=== PATIENT | male | born 1980 | race Caucasian/White ===

== ENCOUNTER 2018-01-24 17:03 | Emergency (ER) | payer MEDICARE ==
[2018-01-24 17:17] VITALS: BMI 25.0
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
[2018-01-24 18:21] VITALS: RESP 18; O2SAT 98
[2018-01-24 18:26] VITALS: BP 129/79; PULSE 79; TEMP 98.2
--- NOTE | 2018-01-26 05:18 | CARD ---
APPROVED REPORT Date of service: 01/24/2018 EKG Measurement Heart [id number] <Conclusion> NSR normal ECG
== END 2018-01-24 18:25 | disposition home or self-care (01) ==
LOC: ED 17:03
DX: S09.90XA Unspecified injury of head, initial encounter (principal); Y04.0XXA Assault by unarmed brawl or fight, initial encounter; F17.210 Nicotine dependence, cigarettes, uncomplicated

== ENCOUNTER 2018-02-05 08:50 | Inpatient (IN) | payer MEDICARE, OTHER ==
[2018-02-05 08:51] VITALS: BMI 25.0
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
[2018-02-05 09:39] LABS: URINE BILIRUBIN NEGATIVE (NEGATIVE); URINE BLOOD SMALL (NEGATIVE); URINE GLUCOSE (UA) NEGATIVE (NEGATIVE); URINE LEUKOCYTE ESTERASE NEGATIVE Leu/uL (NEGATIVE); URINE PROTEIN NEGATIVE mg/dL (<30 mg/dL); URINE UROBILINOGEN 0.2 E.U./dL (<1 E.U./dL)
[2018-02-05 09:40] LABS: BASO # 0.02 K/mm3 (0.0-2.0); BASO % 0.2 % (0.0-3.0); GRAN # 8.86 (1.4-6.5); GRAN % 72.5 % (50.0-68.0); HEMOGLOBIN 15.4 g/dL (14.0-18.0); LYMPH # 2.2 (1.2-3.4); LYMPH % 17.8 % (22.0-35.0); MEAN CELL VOLUME 90.5 fl (80.0-105.0); MEAN CORPUSCULAR HEMOGLOBIN 30.4 pg (25.0-35.0); MEAN CORPUSCULAR HGB CONC 33.6 g/dl (31.0-37.0); MEAN PLATELET VOLUME 8.5 fl (7.0-11.0); MONO # 1.2 (0.1-0.6); MONO % 9.5 % (1.0-6.0); RBC 5.06 10^6/uL (3.5-6.1); RED CELL DISTRIBUTION WIDTH 12.9 % (11.5-14.5); WHITE BLOOD COUNT 12.2 10^3/ul (4.5-11.0)
[2018-02-05 09:41] LABS: URINE COLOR YELLOW (YELLOW)
[2018-02-05 09:42] LABS: URINE APPEARANCE CLEAR (CLEAR)
[2018-02-05 09:44] LABS: URINE BACTERIA MOD (NEG); URINE WBC 0 - 2 /hpf (0-6)
[2018-02-05 09:48] LABS: ACETAMINOPHEN < 10.0 ug/ml (10.0-20.0); ALB/GLOB RATIO 1.5 (1.1-1.8); ALBUMIN 4.8 g/dL (3.0-4.8); ALT/SGPT 44 U/L (7-56); AST/SGOT 61 U/L (17-59); BLOOD UREA NITROGEN 13 mg/dL (7-21); CALCIUM 9.9 mg/dL (8.4-10.5); GFR NON-AFRICAN AMERICAN > 60; SALICYLATE < 1 mg/dL (2.0-20.0)
--- NOTE | 2018-02-05 10:35 | RAD ---
Date of service: 02/05/2018 HISTORY: psych COMPARISON: No prior. FINDINGS: LUNGS: No active pulmonary disease. PLEURA: No significant pleural effusion identified, no pneumothorax apparent. CARDIOVASCULAR: Normal. OSSEOUS STRUCTURES: No significant abnormalities. VISUALIZED UPPER ABDOMEN: Normal. OTHER FINDINGS: None. IMPRESSION: No active disease.
--- NOTE | 2018-02-05 12:17 | CARD ---
APPROVED REPORT Date of service: 02/05/2018 EKG Measurement Heart [id number] <Conclusion> Sinus tachycardia Otherwise normal ECG
[2018-02-05 17:41] VITALS: O2SAT 99
[2018-02-05] MEDS ORDERED: fluPHENAZine Decanoate 25 mg/mL Inj(5ml) IM PRN (21:47)
[2018-02-05] MEDS ORDERED: Alum-Mag Hydrox-Simethicone Susp (30 mL) PO PRN (21:56)
[2018-02-05] MEDS ORDERED: Magnesium Hydroxide Susp 30 ml UD PO PRN (21:56)
[2018-02-05] MEDS: Divalproex 500 mg DR(BID formulation) PO SCH (22:16)
--- NOTE | 2018-02-06 00:37 | PCM.BM ---
Treatment Plan Problems - Problems identified on initial assessmt Altered Thought Process Date Initiated: 02/05/18 Time Initiated: 20:00 Assessment reference: NA Status: Active Priority: 1 Auditory Hallucinations Date Initiated: 02/05/18 Time Initiated: 20:00 Assessment reference: NA Status: Active Priority: 2 Medication Nonadherence Date Initiated: 02/05/18 Time Initiated: 20:00 Assessment reference: NA Status: Active Priority: 3 Ineffective Coping Date Initiated: 02/05/18 Time Initiated: 20:00 Assessment reference: NA Status: Active Priority: 4 Treatment assets and liabiliti Patient Assests: cooperative, physically healthy, good support system, negotiates basic needs Patient Liabilities: financial problems, imparied memory - Milieu Protocol Maintain good personal hygiene: daily Encourage regular showers, every shift Remind patient to perform daily oral care, every shift Assist patient to perform ADL's Maintain personal safety: every shift Educate patient to report safety concerns to staff, every shift Monitor environment for contraband/sharps Medication safety: Monitor for expected outcome, potential side effects: every shift, Assess barriers to learning: every shift, Assess readiness for medication education: every shift Family Contact Family involvement: Family/SO is involved Family contact: Patient agrees to contact - Goals for Treatment Patient goals for treatment: "Get better for my son. supervisor machining where I left off." Discharge/Continuing Care - Education Needs Education Needs: Family Medication, Family Diagnosis/Disease Process, Family Coping Skills, Family Placement options, Family Community resources, Patient Medication, Patient Diagnosis/Disease Process, Patient Coping Skills, Patient Anger Management skills, Patient Placement options, Patient Community resources , Patient Activities of Daily Living, Patient Pain, Patient Nutrition, Patient Uses of Medical Equipment, Patient Health Practices/Safety, Patient Personal Hygiene/Grooming, Patient Aftercare Safety Plan - Discharge Discharge Criteria: Tolerates medication w/o severe side effects
[2018-02-06 07:27] VITALS: RESP 20
[2018-02-06 08:02] LABS: GLUCOSE,FASTING 92 mg/dL (65-110); HDL CHOLESTEROL 38 mg/dL (29-60)
[2018-02-06 08:13] LABS: LDL CHOLESTEROL 79 mg/dL (0-129)
[2018-02-06] MEDS: Divalproex 500 mg DR(BID formulation) PO SCH ×2 (10:03→21:03)
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
[2018-02-06] MEDS: Lidocaine 5% Patch TD SCH (13:45)
[2018-02-07 07:00] VITALS: TEMP 97.8
[2018-02-07 07:42] LABS: HEMOGLOBIN 14.1 g/dL (14.0-18.0); MEAN CELL VOLUME 90.9 fl (80.0-105.0); MEAN CORPUSCULAR HEMOGLOBIN 29.9 pg (25.0-35.0); MEAN CORPUSCULAR HGB CONC 32.9 g/dl (31.0-37.0); MEAN PLATELET VOLUME 8.5 fl (7.0-11.0); RBC 4.72 10^6/uL (3.5-6.1); RED CELL DISTRIBUTION WIDTH 12.5 % (11.5-14.5); WHITE BLOOD COUNT 6.8 10^3/ul (4.5-11.0)
[2018-02-07 08:06] LABS: ALB/GLOB RATIO 1.4 (1.1-1.8); ALBUMIN 4.4 g/dL (3.0-4.8); ALT/SGPT 49 U/L (7-56); AST/SGOT 54 U/L (17-59); BLOOD UREA NITROGEN 13 mg/dL (7-21); CALCIUM 9.2 mg/dL (8.4-10.5); GFR NON-AFRICAN AMERICAN > 60
[2018-02-07] MEDS: Divalproex 500 mg DR(BID formulation) PO SCH ×2 (09:01→21:20)
[2018-02-07] MEDS: Lidocaine 5% Patch TD SCH (09:01)
--- NOTE | 2018-02-07 11:12 | RAD ---
Date of service: 02/07/2018 PROCEDURE: Radiographs of the Lumbar Spine. HISTORY: low back lumbar sacral regions COMPARISON: No prior. FINDINGS: BONES: Normal alignment. No listhesis. No fracture. There is a mild wedge deformity of L1. This is probably chronic DISC SPACES: Unremarkable. OTHER FINDINGS: None. IMPRESSION: No acute findings
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
--- NOTE | 2018-02-07 21:32 | PN ---
DATE: 02/07/2018 SUBJECTIVE: The patient is a 37-year-old white male who was initial admitted in the expansive/manic state. He had engaged in hyper productive speech, hyper motoric activity and racing thoughts. He was complaining of a lack of sleep. Presently, he is alert, oriented, pleasant, compliant. It indicates that he had been on Zyprexa years ago at the beginning of the onset of his cytopathologic state, but presently feels that it makes him feel ____ (although it did help him sleep last night; something that was difficult to him up until that). However, as the patient was also started on Geodon yesterday and seems to be under much better mood and thought controlled without overt signs of psychotic ideation i had gone along and discontinue the patient's Zyprexa. He does not appear to be hyperactive and is expressing some insight fall thoughts. Blood pressure 139/77, pulse elevated at 96, temperature 97.8, respiratory rate 20. A CBC and differential today is within normal limits. The patient is also on Depakote 500 mg a.m. and at bedtime. Supportive therapy offered. Ike Meza MD/ PhD
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
[2018-02-08] MEDS: Lidocaine 5% Patch TD SCH (08:01)
--- NOTE | 2018-02-08 09:11 | PCM.PYCHPN ---
Psychiatric Progress Note - Psychiatric Progress Note Patient seen today, length of contact: 30 minutes Problems Identified/Issues Discussed: PROGRESS NOTE I reviewed recent notes including Dr. Meza's reports dated 02/07/18. I met with patient in the hallway again. He is pleasant, elevated and very communicative. Remains oriented to month, year and location. Grooming is good and in general, patient denies any new issues. Reports that he feels good and has been improving since admission. Indicates that he slept 4-5 hours last night and feels this is enough sleep for him. Patient denies any issues with his medications. He confirms that geodon should be taken with meals and I informed this is necessary for the medication to be fully absorbed. Patient has been visible and social on the unit. Staff have unanimously commented on his elevated mood while he's been on the unit but it does appear that he is getting calmer and less..frenetic. Control seems a little better today though this could be wishful thinking. Staff have also noted that his thought process remains scattered and odd at times. He isn't overtly psychotic or paranoid during my interview but I can't discount that these symptoms continue to be an issue. I didn't observe him to be responding to internal stimuli and thus far, there have been no major behavioral issues. Diagnostic Results: Schizoaffective Disorder Medication Change: No ( ) Medical Record Reviewed: Yes Mental Status Examination - Cognitive Function Orientation: Person, Place Attention: Poor Concentration: Poor Association: Loose Fund of Knowledge: Poor - Mood Mood: Euphoric - Affect Affect: Broad - Speech Speech: Appropriate - Formal Thought Process Formal Thought Process: Loosening of associations - Suicidal Ideation Suicidal Ideation: No - Homicidal Ideation Homicidal Ideation: No Goal/Treatment Plan - Goal/Treatment Plan Progress Toward Problem(s) and Goals/Treatment Plan: * c/w current tx and plan * Increased depakote to 500 mg po AM and 1000 mg po HS to help with mood control as patient has been elevated with FOI on the unit. Requested VPA level to ensure patient isn't cheeking * Appreciate f/u by Dr. Morel on 02/08/18 ~Lumbar spine xray 02/07/18 showed no acute findings * No new weekend labs * Vitals reviewed and noted below: Selected Entries 02/09/18 07:14 Temperature 97.8 F Pulse Rate 85 Respiratory 20 Rate Blood Pressure 128/80
[2018-02-08] MEDS ORDERED: Divalproex 500 mg DR(BID formulation) PO SCH ×2 (10:00→22:00)
[2018-02-08] MEDS: Divalproex 500 mg ER (ONCE DAILY formulation) PO SCH ×2 (11:51→21:44)
--- NOTE | 2018-02-08 14:50 | PN ---
DATE: 02/08/2018 SUBJECTIVE: He is walking around the sparrow. I saw him in his room. He is doing well. No complaints. No chest pain or shortness of breath. No abdominal pain. He is doing better with his mentation. MEDICATIONS: He is on Ativan, Cogentin, Depakote, Desyrel, Geodon, Lidoderm, Maalox, milk of magnesia, NicoDerm, Sonata, Thorazine and Tylenol. PHYSICAL EXAMINATION: VITAL SIGNS: 97.8 temp, 84 pulse, 132/84 blood pressure, 20 respiratory rate. GENERAL: He is eating his foods well. He has taken the medications. HEENT: Head is atraumatic, normocephalic. HEART: Regular rate. LUNGS: Clear to auscultation. ABDOMEN: Soft. EXTREMITIES: No edema. LABORATORY DATA: Last labs on 02/07/2018, he had a 6.8 white count, came down nicely from 12; 14.1 hemoglobin; 42.9 hematocrit with 290 platelets. He has a 138 sodium, potassium 4.8, BUN 30, creatinine 1, GFR is greater than 60, sugar is 94, calcium is 9.2, total bili is 0.5, AST is 54, ALT is 49, alk phos 76, total protein 7.5. TSH is good at 0.58. Cholesterol is 135. ASSESSMENT AND PLAN: Overall, medically he is doing fairly fair. Mentally, he tells me slowly starting to improve. He had a lumbar spine x-ray, which showed no acute findings. We will continue with aggressive treatment and care on [facility]. We will follow. He has schizophrenia, urinary tract infection, low back pain. Fitz Morel DO
[2018-02-09] MEDS: Lidocaine 5% Patch TD SCH (08:02)
[2018-02-09] MEDS: Divalproex 500 mg ER (ONCE DAILY formulation) PO SCH ×2 (09:30→21:48)
--- NOTE | 2018-02-09 10:40 | PN ---
DATE: 02/09/2018 SUBJECTIVE: He is walking on the psychiatric floor. He is doing fairly well mentally. He says he is improving. He is on Ativan, Cogentin, Depakote, Desyrel, Geodon, Lidoderm, Maalox, milk of magnesia, NicoDerm, Sonata, Thorazine, Tylenol. He is also showing me a right wrist discoloration of the skin where maybe he had a watch one time, but it is all discolored and it is very itchy. It is possibly a fungal infection. I will give him a Lotrisone cream twice a day to help that. PHYSICAL EXAMINATION: VITAL SIGNS: He has a 97.8 temp, 85 pulse, 128/80 blood pressure, 20 respiratory rate. HEENT: Head is atraumatic, normocephalic. He also had a lip issue, but that improved since yesterday, so he does not want to show me his lip right now because he said it is all better. HEART: Regular rate. LUNGS: Clear to auscultation. ABDOMEN: Soft. EXTREMITIES: No edema, but the right wrist has discoloration, it could be a fungus infection. LABORATORY DATA: Last labs on 02/07/2018, the CBC was good. His chemistry was good. ASSESSMENT AND PLAN: We will add Lotrisone cream twice a day to his medication list. We will encourage him to continue to participate, take the medications from the psychiatrist. I do think he is mentally starting to improve. We will help his right wrist with some cream and we will follow. Fitz Morel DO
[2018-02-09] MEDS: Clotrimazole/Betamethasone Cream(15 gm) TOP SCH ×2 (12:42→16:58)
[2018-02-09 22:18] VITALS: BP 124/81; PULSE 94
[2018-02-10] MEDS: Lidocaine 5% Patch TD SCH (08:19)
--- NOTE | 2018-02-10 08:48 | PN ---
DATE: 02/10/2018 SUBJECTIVE: He is walking around the floor. He tells me he is doing better mentally overall. He is on Ativan, Cogentin, Depakote, Desyrel, Geodon, Lidoderm, Lotrisone cream, Maalox, milk of magnesia, NicoDerm, Sonata, Thorazine, Tylenol. He also shows me his right wrist where he had the discoloration and fungal infection and the Lotrisone is really helping him, he tells me. OBJECTIVE: VITAL SIGNS: He has 97.8 temperature, 85 pulse, 128/80 blood pressure, 20 respiratory rate. HEENT: Head is atraumatic, normocephalic. HEART: Regular rate. LUNGS: Clear to auscultation. ABDOMEN: Soft. EXTREMITIES: No edema. The right wrist infection is getting better as the fungus is improving with Lotrisone. DATA: Last labs on 02/07/2018 and he did well. He did have urinary tract infection. He had low back pain which is improving, urine is improving and the fungal infection is improving. As per Psychiatry, continue aggressive treatment and care. Fitz Morel DO
[2018-02-10] MEDS: Divalproex 500 mg ER (ONCE DAILY formulation) PO SCH (09:18)
[2018-02-10] MEDS: Clotrimazole/Betamethasone Cream(15 gm) TOP SCH (09:18)
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
== END 2018-02-10 15:54 | disposition home or self-care (01) | DRG 885 ==
LOC: ED 08:50 → ERH 16:59 → PSYC 18:40
PROVIDERS: ADMIT Psychiatry & Neurology Psychiatry; ATTEND Psychiatry & Neurology Addiction Medicine
PROC: GZ3ZZZZ Medication Management (ICD-10-PCS; principal; 2018-02-05)
DX: F25.9 Schizoaffective disorder, unspecified (principal); N39.0 Urinary tract infection, site not specified; M54.5 Low back pain; F17.210 Nicotine dependence, cigarettes, uncomplicated

== ENCOUNTER 2018-02-23 16:12 | Emergency (ER) | payer MEDICARE, OTHER ==
[2018-02-23 16:12] VITALS: BMI 25.0
[2018-02-23 16:19] VITALS: BP 116/74; PULSE 90; RESP 16; TEMP 99.4; O2SAT 96
--- NOTE | 2018-02-23 16:39 | ED PDOC ---
Arrival/HPI - General Chief Complaint: Back Pain Time Seen by Provider: 02/23/18 16:13 Historian: Patient - History of Present Illness Narrative History of Present Illness (Text): 02/23/18 16:36 37yo male with pmhx of schizophrenia who present with complaint of lower and upper back pain intermittent x 5years. He also reports white spots on his back, worried that it might be cancerous. He states back pain is similar to his prev ious pain. Notes that he does not take any medication for the pain. He denies any recent trauma, focal weakness, urinary/fecal incontinence, abdominal pain, urinary symptoms, fever, chills, neck pain, nuchal rigidity, any other complaint. Past Medical History - Provider Review Nursing Documentation Reviewed: Yes - Cardiac Hx Cardiac Disorders: No - Pulmonary Hx Respiratory Disorders: No - Neurological Hx Neurological Disorder: No - HEENT Hx HEENT Disorder: No - Renal Hx Renal Disorder: No - Endocrine/Metabolic Hx Endocrine Disorders: No - Hematological/Oncological Hx Blood Disorders: No - Integumentary Hx Dermatological Disorder: No - Musculoskeletal/Rheumatological Hx Musculoskeletal Disorders: No - Gastrointestinal Hx Gastrointestinal Disorders: No - Genitourinary/Gynecological Hx Genitourinary Disorders: No - Psychiatric Hx Psychophysiologic Disorder: Yes Hx Schizophrenia: Yes Hx Substance Use: Yes - Surgical History Hx Inguinal Hernia Repair: Yes - Anesthesia Hx Anesthesia: Yes - Suicidal Assessment Feels Threatened In Home Enviroment: Yes Family/Social History - Physician Review Nursing Documentation Reviewed: Yes Family/Social History: Unknown Family HX Smoking Status: Heavy Smoker > 10 Cigarettes Daily Hx Alcohol Use: No Hx Substance Use: Yes Hx Substance Use Treatment: No Allergies/Home Meds Allergies/Adverse Reactions: Allergies haloperidol [From Haldol] Adverse Reaction (Verified 02/23/18 16:13) PAIN cramping Home Medications: Home Meds Medication Instructions Recorded Confirmed Benztropine [Cogentin] 1 mg PO DAILY 02/23/18 02/23/18 Review of Systems - Physician Review All systems were reviewed & negative as marked: Yes - Review of Systems Constitutional: Normal Eyes: Normal ENT: Normal Respiratory: Normal Cardiovascular: Normal Gastrointestinal: Normal Genitourinary Male: Normal Musculoskeletal: Back Pain Skin: Other (White patches) Neurological: Normal Endocrine: Normal Hemo/Lymphatic: Normal Psychiatric: Normal Physical Exam Vital Signs Reviewed: Yes Vital Signs Temp Pulse Resp BP Pulse Ox 02/23/18 16:15 99.4 F 90 16 116/74 96 Temperature: Afebrile Blood Pressure: Normal Pulse: Regular Respiratory Rate: Normal Appearance: Positive for: Well-Appearing, Non-Toxic, Comfortable Pain Distress: None Mental Status: Positive for: Alert and Oriented X 3 - Systems Exam Head: Present: Atraumatic, Normocephalic Pupils: Present: PERRL Extroacular Muscles: Present: EOMI Conjunctiva: Present: Normal Mouth: Present: Moist Mucous Membranes Neck: Present: Normal Range of Motion Respiratory/Chest: Present: Clear to Auscultation, Good Air Exchange. No: Respiratory Distress, Accessory Muscle Use Cardiovascular: Present: Regular Rate and Rhythm, Normal S1, S2. No: Murmurs Abdomen: No: Tenderness, Distention, Peritoneal Signs Back: Present: Midline Tenderness (Midthoracic tenderness), Paraspinal Tenderness, Pain with Leg Raise (Right leg) Upper Extremity: Present: Normal Inspection. No: Cyanosis, Edema Lower Extremity: Present: Normal Inspection. No: Edema Neurological: Present: GCS=15, CN II-XII Intact, Speech Normal Skin: Present: Warm, Dry, Normal Color, Other (Vitiligo spots noted). No: Rashes Psychiatric: Present: Alert, Oriented x 3, Normal Insight, Normal Concentration Medical Decision Making ED Course and Treatment: 02/23/18 16:51 Pt presented for stated history. He was not in any distress. Ambulatory without help. His pain is chronic. He was treated with Toradol and flexeril in ED. His pain improved on re evaluation. He was DC home with ibuprofen and flexeril. Referred to his PMD/[employer] - Medication Orders Current Medication Orders: Discontinued Medications Cyclobenzaprine HCl (Flexeril) 10 mg PO STAT STA Stop: 02/23/18 16:33 Ketorolac Tromethamine (Toradol) 60 mg IM STAT STA Stop: 02/23/18 16:33 Disposition/Present on Arrival - Present on Arrival Any Indicators Present on Arrival: No History of DVT/PE: No History of Uncontrolled Diabetes: No Urinary Catheter: No History of Decub. Ulcer: No History Surgical Site Infection Following: None - Disposition Have Diagnosis and Disposition been Completed?: Yes Diagnosis: Vitiligo, Chronic back pain Disposition: HOME/ ROUTINE Disposition Time: 16:45 Patient Plan: Discharge Condition: STABLE Discharge Instructions (ExitCare): Vitiligo , Chronic Pain (DC) Additional Instructions: Follow up with your Doctor/[employer] Return to ED for any new or worsening symptoms Return to ED for any new or worsening symptoms Prescriptions: Cyclobenzaprine [Flexeril] 5 mg PO TID #12 tab RX: Ibuprofen [Motrin Tab] 600 mg PO Q6 #20 tab Referrals: Chang Alexander, [Primary Care Provider] - Follow up with primary Lola Topete MD [Medical Doctor] - Follow up with primary Ivanna Thrasher MD [Staff Provider] - Follow up with primary Forms: [employer] [facility] (Monegasque)
== END 2018-02-23 17:01 | disposition home or self-care (01) ==
LOC: ED 16:12
DX: L80 Vitiligo (principal); G89.29 Other chronic pain; M54.5 Low back pain; M54.6 Pain in thoracic spine
CPT/HCPCS: 96372; 99283; J1885

== ENCOUNTER 2018-02-27 21:46 | Emergency (ER) | payer MEDICARE, OTHER ==
[2018-02-27 21:59] VITALS: TEMP 98.2
[2018-02-27 22:00] VITALS: BMI 25.7
--- NOTE | 2018-02-27 23:10 | ED PDOC ---
Arrival/HPI - General Historian: Patient - History of Present Illness Narrative History of Present Illness (Text): 02/27/18 23:08 A37 year old male presents to the emergency department with a complaint of right rib injury. The patient states that yesterday he slipped and fell in the bath tub onto his right ribs. He states that the pain, swelling and bruising on his right ribs has been worsening with palpation and movement. The patient denies head injury, loss of consciousness, shortness of breath, dyspnea on exertion, abdominal pain, nausea, vomiting, diarrhea, back pain, neck pain, urinary/bowel changes, or any other complaints. Time/Duration: Other (Yesterday) Symptom Onset: Sudden Symptom Course: Unchanged Activities at Onset: Rest, Light Context: Standing, Slipped <Jimena Ridley PA-C - Last Filed: 02/28/18 01:18> <Guillermo Givens - Last Filed: 03/04/18 00:20> - General Chief Complaint: Back Pain Time Seen by Provider: 02/27/18 22:27 Past Medical History - Provider Review Nursing Documentation Reviewed: Yes - Cardiac Hx Cardiac Disorders: No - Pulmonary Hx Respiratory Disorders: No - Neurological Hx Neurological Disorder: No - HEENT Hx HEENT Disorder: No - Renal Hx Renal Disorder: No - Endocrine/Metabolic Hx Endocrine Disorders: No - Hematological/Oncological Hx Blood Disorders: No - Integumentary Hx Dermatological Disorder: No - Musculoskeletal/Rheumatological Hx Musculoskeletal Disorders: No - Gastrointestinal Hx Gastrointestinal Disorders: No - Genitourinary/Gynecological Hx Genitourinary Disorders: No - Psychiatric Hx Psychophysiologic Disorder: Yes Hx Schizophrenia: Yes Hx Substance Use: Yes - Surgical History Hx Inguinal Hernia Repair: Yes - Anesthesia Hx Anesthesia: Yes - Suicidal Assessment Feels Threatened In Home Enviroment: Yes <Jimena Ridley PA-C - Last Filed: 02/28/18 01:18> Family/Social History - Physician Review Nursing Documentation Reviewed: Yes Family/Social History: No Known Family HX Smoking Status: Heavy Smoker > 10 Cigarettes Daily Hx Alcohol Use: No Hx Substance Use: Yes Hx Substance Use Treatment: No <Jimena Ridley PA-C - Last Filed: 02/28/18 01:18> Allergies/Home Meds <Jimena Ridley PA-C - Last Filed: 02/28/18 01:18> <Guillermo Givens - Last Filed: 03/04/18 00:20> Allergies/Adverse Reactions: Allergies haloperidol [From Haldol] Adverse Reaction (Verified 02/27/18 21:59) PAIN cramping Home Medications: Home Meds Medication Instructions Recorded Confirmed Benztropine [Cogentin] 1 mg PO DAILY 02/23/18 02/27/18 Review of Systems - Physician Review All systems were reviewed & negative as marked: Yes - Review of Systems Respiratory: absent: SOB Gastrointestinal: absent: Abdominal Pain, Stool Changes, Diarrhea, Nausea, Vomiting Genitourinary Male: absent: Urinary Output Changes Musculoskeletal: absent: Back Pain, Neck Pain Neurological: absent: Headache, Dizziness <Jimena Ridley PA-C - Last Filed: 02/28/18 01:18> Physical Exam Vital Signs Reviewed: Yes Vital Signs Temp Pulse Resp BP Pulse Ox 02/27/18 21:58 98.2 F 94 H 18 131/80 97 Temperature: Afebrile Blood Pressure: Normal Pulse: Tachycardic Respiratory Rate: Normal Appearance: Positive for: Well-Appearing, Non-Toxic, Comfortable Pain Distress: None Mental Status: Positive for: Alert and Oriented X 3 - Systems Exam Head: Present: Atraumatic, Normocephalic Pupils: Present: PERRL Extroacular Muscles: Present: EOMI Conjunctiva: Present: Normal Mouth: Present: Moist Mucous Membranes Neck: Present: Normal Range of Motion Respiratory/Chest: Present: Clear to Auscultation, Good Air Exchange, Other (S welling and ecchymosis to the lateral lower ribs.). No: Respiratory Distress, Accessory Muscle Use Cardiovascular: Present: Regular Rate and Rhythm, Normal S1, S2. No: Murmurs Abdomen: No: Tenderness, Distention, Peritoneal Signs Back: Present: Normal Inspection Upper Extremity: Present: Normal Inspection. No: Cyanosis, Edema Lower Extremity: Present: Normal Inspection. No: Edema Neurological: Present: GCS=15, CN II-XII Intact, Speech Normal Skin: Present: Warm, Dry, Normal Color. No: Rashes Psychiatric: Present: Alert, Oriented x 3, Normal Insight, Normal Concentration <Jimena Ridley PA-C - Last Filed: 02/28/18 01:18> Vital Signs Temp Pulse Resp BP Pulse Ox 02/28/18 00:05 98.2 F 88 19 145/76 100 02/27/18 21:58 98.2 F 94 H 18 131/80 97 <Guillermo Givens - Last Filed: 03/04/18 00:20> Medical Decision Making ED Course and Treatment: 02/27/18 23:13 Impression: A 37 year old male presents to the emergency department with a complaint of right sided rib pain s/p slip and fall yesterday. Plan: -- Right Rib and PA Chest X-ray -- Reassess and disposition Progress Notes: XR right ribs: no fracture, no pneumothorax, as read by PA Patient advised that official radiology read of XR is still pending and will call the patient if there is any discrepancy within 24 hours. XR results d/w the patient. Dx of rib contusion d/w the patient. Advised to follow up with primary care physician or referral provided in 1-2 days without fail. Advised to take medication as prescribed. Return to the emergency room at any time for any new or worsening symptoms. Patient states he fully agrees with and understands discharge instructions. States that he agrees with the plan and disposition. Verbalized and repeated discharge instructions and plan. I have given the patient opportunity to ask any additional questions. - RAD Interpretation Radiology Orders: 02/27/18 22:28 RIBS RIGHT & PA CHEST [RAD] Stat <Jimena Ridley PA-C - Last Filed: 02/28/18 01:18> - RAD Interpretation Radiology Orders: 02/27/18 22:28 RIBS RIGHT & PA CHEST [RAD] Stat <Guillermo Givens - Last Filed: 03/04/18 00:20> - Scribe Statement The provider has reviewed the documentation as recorded by the Scribe Corine Dill Provider Scribe Attestation: All medical record entries made by the Scribe were at my direction and personally dictated by me. I have reviewed the chart and agree that the record accurately reflects my personal performance of the history, physical exam, medical decision making, and the department course for this patient. I have also personally directed, reviewed, and agree with the discharge instructions and disposition. <Jimena Ridley PA-C - Last Filed: 02/28/18 01:18> - PA / DIRECTOR OF PUBLIC SAFETY / Resident Statement / has reviewed & agrees with the documentation as recorded. <Guillermo Givens - Last Filed: 03/04/18 00:20> Disposition/Present on Arrival - Present on Arrival Any Indicators Present on Arrival: No History of DVT/PE: No History of Uncontrolled Diabetes: No Urinary Catheter: No History of Decub. Ulcer: No History Surgical Site Infection Following: None - Disposition Have Diagnosis and Disposition been Completed?: Yes Disposition Time: 23:45 Patient Plan: Discharge <Jimena Ridley PA-C - Last Filed: 02/28/18 01:18> <Guillermo Givens - Last Filed: 03/04/18 00:20> - Disposition Diagnosis: Contusion of rib on right side Disposition: HOME/ ROUTINE Condition: STABLE Discharge Instructions (ExitCare): Bruised Rib (DC) Additional Instructions: Thank you for letting us take care of you today. You were treated for right rib contusion. The emergency medical care you received today was directed at your acute symptoms. If you were prescribed any medication, please fill it and take as directed. It may take several days for your symptoms to resolve. Return to the Emergency Department if your symptoms worsen, do not improve, or if you have any other problems. Please contact your doctor in 2 days for re-evaluation and follow up / or call one of the physicians/clinics you have been referred to that are listed on the Patient Visit Information form that is included in your discharge packet. Bring any paperwork you were given at discharge with you along with any medications you are taking to your follow up visit. Our treatment cannot replace ongoing me dical care by a primary care provider (PCP) outside of the emergency department. Thank you for allowing the [facility] team to be part of your care today. If you had an X-Ray : A Radiologist will review the ED reading if any change in treatment is needed we will contact you. Prescriptions: RX: Naproxen 500 mg PO BID PRN #20 tablet PRN Reason: Pain, Moderate (4-7) Referrals: [facility] at [facility] [Outside] - Follow up with primary Lola Topete MD [Medical Doctor] - Follow up with primary Forms: [employer] (Uzbek), WORK NOTE
[2018-02-28 00:15] VITALS: BP 145/76; PULSE 88; RESP 19; O2SAT 100
--- NOTE | 2018-02-28 10:23 | RAD ---
Date of service: 02/27/2018 PROCEDURE: Radiographs of the Chest and Right Ribs. HISTORY: pain COMPARISON: None available. TECHNIQUE: Frontal radiograph of the chest and multiple oblique radiographs of the right ribs were obtained. FINDINGS: RIGHT RIBS: No fracture or focal lesion visualized. LUNGS: Clear. PLEURA: No pneumothorax or pleural fluid. CARDIOVASCULAR: Normal sized heart. No pulmonary vascular congestion. OTHER FINDINGS: None. IMPRESSION: Unremarkable radiographs of the chest and right ribs. No right rib fracture.
== END 2018-02-28 00:05 | disposition home or self-care (01) ==
LOC: ED 21:46
DX: S20.211A Contusion of right front wall of thorax, initial encounter (principal); W01.0XXA Fall on same level from slipping, tripping and stumbling without subsequent striking against object, initial encounter

== ENCOUNTER 2018-03-02 14:30 | Emergency (ER) | payer MEDICARE, OTHER ==
[2018-03-02 14:30] VITALS: BMI 25.7
[2018-03-02 15:30] VITALS: RESP 18; O2SAT 99
--- NOTE | 2018-03-02 16:10 | ED PDOC ---
Arrival/HPI - General Chief Complaint: Trauma Time Seen by Provider: 03/02/18 15:35 Historian: Patient - History of Present Illness Narrative History of Present Illness (Text): 03/02/18 16:07 37 year old male, whose past medical history includes bipolar disorder, who presents to the Emergency department complaining of left sided/posterior rib pain s/p trip and fall. Patient notes pain worsens with movement and respirations. Patient denies any fevers, chills, chest pain, shortness of breath, abdominal pain, nausea, vomiting, diarrhea, back pain, neck pain, headache, dizziness, or any other complaint. Time/Duration: Prior to Arrival Symptom Onset: Gradual Symptom Course: Unchanged Activities at Onset: Light Context: Home Past Medical History - Provider Review Nursing Documentation Reviewed: Yes - Infectious Disease Hx of Infectious Diseases: None - Cardiac Hx Cardiac Disorders: No - Pulmonary Hx Respiratory Disorders: No - Neurological Hx Neurological Disorder: No - HEENT Hx HEENT Disorder: No - Renal Hx Renal Disorder: No - Endocrine/Metabolic Hx Endocrine Disorders: No - Hematological/Oncological Hx Blood Disorders: No - Integumentary Hx Dermatological Disorder: No - Musculoskeletal/Rheumatological Hx Musculoskeletal Disorders: No - Gastrointestinal Hx Gastrointestinal Disorders: No - Genitourinary/Gynecological Hx Genitourinary Disorders: No - Psychiatric Hx Psychophysiologic Disorder: Yes Hx Schizophrenia: Yes Hx Substance Use: Yes - Surgical History Hx Inguinal Hernia Repair: Yes - Anesthesia Hx Anesthesia: Yes - Suicidal Assessment Feels Threatened In Home Enviroment: Yes Family/Social History - Physician Review Nursing Documentation Reviewed: Yes Family/Social History: Unknown Family HX Smoking Status: Heavy Smoker > 10 Cigarettes Daily Hx Alcohol Use: No Hx Substance Use: Yes Hx Substance Use Treatment: No Allergies/Home Meds Allergies/Adverse Reactions: Allergies haloperidol [From Haldol] Adverse Reaction (Verified 02/27/18 21:59) PAIN cramping Home Medications: Home Meds Medication Instructions Recorded Confirmed Benztropine [Cogentin] 1 mg PO DAILY 02/23/18 02/27/18 Review of Systems - Physician Review All systems were reviewed & negative as marked: Yes - Review of Systems Constitutional: Normal Eyes: Normal ENT: Normal Respiratory: Normal. absent: SOB, Cough Cardiovascular: Normal. absent: Chest Pain Gastrointestinal: Normal. absent: Abdominal Pain Genitourinary Male: Normal. absent: Dysuria, Frequency, Hematuria Musculoskeletal: Other (left sided/posterior rib pain). absent: Back Pain, Neck Pain Skin: Normal. absent: Rash Neurological: Normal. absent: Headache, Dizziness Endocrine: Normal Hemo/Lymphatic: Normal Psychiatric: Normal Physical Exam Vital Signs Reviewed: Yes Vital Signs Temp Pulse Resp BP Pulse Ox 03/02/18 15:00 98 F 88 18 131/73 99 Temperature: Afebrile Blood Pressure: Normal Pulse: Regular Respiratory Rate: Normal Appearance: Positive for: Well-Appearing, Non-Toxic, Comfortable Pain Distress: None Mental Status: Positive for: Alert and Oriented X 3 - Systems Exam Head: Present: Atraumatic, Normocephalic Pupils: Present: PERRL Extroacular Muscles: Present: EOMI Conjunctiva: Present: Normal Mouth: Present: Moist Mucous Membranes Neck: Present: Normal Range of Motion Respiratory/Chest: Present: Clear to Auscultation, Good Air Exchange, Other (left sided/posterior rib tenderness; no crepitus; no step off). No: Respiratory Distress, Accessory Muscle Use Cardiovascular: Present: Regular Rate and Rhythm, Normal S1, S2. No: Murmurs Abdomen: No: Tenderness, Distention, Peritoneal Signs Back: Present: Normal Inspection. No: CVA Tenderness, Midline Tenderness, Paraspinal Tenderness Upper Extremity: Present: Normal Inspection. No: Cyanosis, Edema Lower Extremity: Present: Normal Inspection. No: Edema Neurological: Present: GCS=15, CN II-XII Intact, Speech Normal Skin: Present: Warm, Dry, Normal Color. No: Rashes Psychiatric: Present: Alert, Oriented x 3, Normal Insight, Normal Concentration Medical Decision Making ED Course and Treatment: 03/02/18 16:11 Impression: 37 year old female presents to the emergency department complaining of left sided/posterior back pain. Differential Diagnosis included but are not limited to: r/o fracture r/o ptx Plan: -- Xray left ribs -- Reassess and disposition Progress Notes: 03/02/18 16:59 Rib Xray reviewed, shows negative results. Patient advised to f/u in the clinic. He was given an incentive spiratory and advised to use it at least three times daily and to return to the ED if symptoms worsen or any other concern. - RAD Interpretation Radiology Orders: 03/02/18 15:58 RIBS LEFT [RAD] Stat - Scribe Statement The provider has reviewed the documentation as recorded by the Zacharyibe Ashleigh Clemons All medical record entries made by the Scribe were at my direction and personally dictated by me. I have reviewed the chart and agree that the record accurately reflects my personal performance of the history, physical exam, medical decision making, and the department course for this patient. I have also personally directed, reviewed, and agree with the discharge instructions and disposition. Disposition/Present on Arrival - Present on Arrival Any Indicators Present on Arrival: No History of DVT/PE: No History of Uncontrolled Diabetes: No Urinary Catheter: No History of Decub. Ulcer: No History Surgical Site Infection Following: None - Disposition Have Diagnosis and Disposition been Completed?: Yes Diagnosis: Contusion of rib on left side Disposition: HOME/ ROUTINE Disposition Time: 16:59 Patient Plan: Discharge Condition: IMPROVED Discharge Instructions (ExitCare): Contusion (DC) Additional Instructions: LILLIAN CARROLL, thank you for letting us take care of you today. Your provider was Luis Enrique Dickinson DO and you were treated for RIB Contusion. The emergency medical care you received today was directed at your acute symptoms. If you were prescribed any medication, please fill it and take as directed. It may take several days for your symptoms to resolve. Return to the Emergency Department if your symptoms worsen, do not improve, or if you have any other problems. Please contact your doctor or call one of the physicians/clinics you have been referred to that are listed on the Patient Visit Information form that is included in your discharge packet. Bring any paperwork you were given at discharge with you along with any medications you are taking to your follow up visit. Our treatment cannot replace ongoing medical care by a primary care provider outside of the emergency department. Thank you for allowing the [facility] team to be part of your care today. If you had an X-Ray or CT scan: A Radiologist will review the ED reading if any change in treatment is needed we will contact you. If you had a blood, urine, or wound culture: It will take several days for the results, if any change in treatment is needed we will contact you. If you had an STI test: It will take 48 hours for the results. Please call after 1 week if you have not heard back. Prescriptions: Ibuprofen [Motrin] 600 mg PO Q6 PRN #30 tab PRN Reason: Pain, Moderate (4-7) Referrals: [facility] [Outside] - Follow up with primary Lola Topete MD [Medical Doctor] - Follow up with primary Forms: [employer] (Greek), WORK NOTE
[2018-03-02 17:03] VITALS: BP 118/71; PULSE 80; TEMP 97.6
--- NOTE | 2018-03-03 11:03 | RAD ---
Date of service: 03/02/2018 PROCEDURE: Left ribs HISTORY: left rib pain s/p fall r/o fx COMPARISON: TECHNIQUE: Five views FINDINGS: There is no evidence of displaced rib fracture or lytic lesion. There is no pneumothorax IMPRESSION: Negative study
== END 2018-03-02 17:00 | disposition home or self-care (01) ==
LOC: ED 14:30
DX: S20.212A Contusion of left front wall of thorax, initial encounter (principal); W01.0XXA Fall on same level from slipping, tripping and stumbling without subsequent striking against object, initial encounter; F17.210 Nicotine dependence, cigarettes, uncomplicated; F20.9 Schizophrenia, unspecified

== ENCOUNTER 2018-03-04 11:30 | Emergency (ER) | payer MEDICARE ==
[2018-03-04 11:34] VITALS: BMI 27.6
--- NOTE | 2018-03-04 11:59 | ED PDOC ---
Arrival/HPI - General Chief Complaint: Psychiatric Evaluation Time Seen by Provider: 03/04/18 11:31 Historian: Patient - History of Present Illness Narrative History of Present Illness (Text): 03/04/18 11:48 37 year old male, with past medical history of schizophrenia and bipolar disorder, who goes to [facility], presents to the Emergency Department via EMS accompanied by mother and [employer] for medical evaluation. Patient was reportedly at the facility today when he became agitated and started threatening the staff. [employer] was informed immediately, who subsequently brought the patient to the Emergency Department for medical evaluation. As per mother, patient has not been sleeping well recently and has been following people on the street. At bedside, patient appears agitated but denies any suicidal or homicidal ideation. Patient reports questionable compliance with medication. Patient denies any somatic complaints and states he just wants to listen to his music. Patient denies any chest pain, shortness of breath, headache, abdominal pain or any other complaints. Time/Duration: Prior to Arrival Symptom Onset: Gradual Symptom Course: Improving Activities at Onset: Light Context: Other ([facility]) Past Medical History - Provider Review Nursing Documentation Reviewed: Yes - Infectious Disease Hx of Infectious Diseases: None - Cardiac Hx Cardiac Disorders: No - Pulmonary Hx Respiratory Disorders: No - Neurological Hx Neurological Disorder: No - HEENT Hx HEENT Disorder: No - Renal Hx Renal Disorder: No - Endocrine/Metabolic Hx Endocrine Disorders: No - Hematological/Oncological Hx Blood Disorders: No - Integumentary Hx Dermatological Disorder: No - Musculoskeletal/Rheumatological Hx Musculoskeletal Disorders: Yes - Gastrointestinal Hx Gastrointestinal Disorders: No - Genitourinary/Gynecological Hx Genitourinary Disorders: No - Psychiatric Hx Psychophysiologic Disorder: Yes Hx Schizophrenia: Yes Hx Substance Use: Yes - Surgical History Hx Inguinal Hernia Repair: Yes - Anesthesia Hx Anesthesia: Yes - Suicidal Assessment Feels Threatened In Home Enviroment: Yes Family/Social History - Physician Review Nursing Documentation Reviewed: Yes Family/Social History: No Known Family HX Smoking Status: Heavy Smoker > 10 Cigarettes Daily Hx Alcohol Use: No Hx Substance Use: Yes Hx Substance Use Treatment: No Allergies/Home Meds Allergies/Adverse Reactions: Allergies haloperidol [From Haldol] Adverse Reaction (Verified 03/04/18 11:34) PAIN cramping Home Medications: Home Meds Medication Instructions Recorded Confirmed Benztropine [Cogentin] 1 mg PO DAILY 02/23/18 03/04/18 Review of Systems - Review of Systems Constitutional: absent: Fevers Respiratory: absent: SOB Cardiovascular: absent: Chest Pain Gastrointestinal: absent: Abdominal Pain, Diarrhea, Nausea, Vomiting Musculoskeletal: absent: Back Pain, Neck Pain Neurological: absent: Headache, Dizziness Psychiatric: Other (Agitation). absent: Suicidal Ideation Physical Exam Vital Signs Reviewed: Yes Vital Signs Temp Pulse Resp BP Pulse Ox 03/04/18 11:35 99.1 F 99 H 16 118/78 96 Temperature: Afebrile Blood Pressure: Normal Pulse: Regular Respiratory Rate: Normal Appearance: Positive for: Other (Agitated) Pain Distress: None Mental Status: Positive for: Alert and Oriented X 3 - Systems Exam Head: Present: Atraumatic, Normocephalic Pupils: Present: PERRL Extroacular Muscles: Present: EOMI Conjunctiva: Present: Normal Mouth: Present: Moist Mucous Membranes Neck: Present: Normal Range of Motion Respiratory/Chest: Present: Clear to Auscultation, Good Air Exchange. No: Respiratory Distress, Accessory Muscle Use Cardiovascular: Present: Regular Rate and Rhythm, Normal S1, S2. No: Murmurs Abdomen: No: Tenderness, Distention, Peritoneal Signs Back: Present: Normal Inspection Upper Extremity: Present: Normal Inspection. No: Cyanosis, Edema Lower Extremity: Present: Normal Inspection. No: Edema Neurological: Present: GCS=15, CN II-XII Intact, Speech Normal Skin: Present: Warm, Dry, Normal Color. No: Rashes Psychiatric: Present: Alert, Oriented x 3, Agitated Medical Decision Making ED Course and Treatment: 03/04/18 11:34 Impression: 37 year old male presents to the Emergency Department for medical evaluation. Plan: -- Labs -- EKG -- Chest X-ray -- Urinalysis -- Reassess and disposition Prior Visits: Notes and results from previous visits were reviewed. Progress Notes: 03/04/18 12:25 EKG shows NSR at 96bpm with normal intervals and no ST changes 03/04/18 15:07 Cxray negative. Labs reviewed. CK mildly elevated but creatinine WNL. Hematuria on ua and patient made aware of need for outpatient follow-up. Given copious water in ED. Patient evaluated by crisis and pending [facility] screen 03/04/18 20:[address] Gonsalez pending [facility] eval - RAD Interpretation Narrative RAD Interpretations (Text): 03/04/18 13:18 Chest X-ray reviewed by radiologist, shows: FINDINGS: LUNGS: The lungs are well inflated and clear. PLEURA: No significant pleural effusion identified, no pneumothorax apparent. CARDIOVASCULAR: Normal. OSSEOUS STRUCTURES: No significant abnormalities. VISUALIZED UPPER ABDOMEN: Normal. OTHER FINDINGS: None. IMPRESSION: No active pulmonary disease. Radiology Orders: 03/04/18 11:35 CHEST PORTABLE [RAD] Stat Vacuum Cooker Operator: Radiologist - Scribe Statement The provider has reviewed the documentation as recorded by the Scribe Nai Deleon. All medical record entries made by the Scribe were at my direction and personally dictated by me. I have reviewed the chart and agree that the record accurately reflects my personal performance of the history, physical exam, medical decision making, and the department course for this patient. I have also personally directed, reviewed, and agree with the discharge instructions and disposition. Disposition/Present on Arrival - Present on Arrival Any Indicators Present on Arrival: No History of DVT/PE: No History of Uncontrolled Diabetes: No Urinary Catheter: No History of Decub. Ulcer: No History Surgical Site Infection Following: None - Disposition Have Diagnosis and Disposition been Completed?: Yes Diagnosis: Hematuria, Schizophrenia Disposition Time: 20:52 Patient Problems: Current Active Problems Problem Status Onset Hematuria Acute Schizophrenia Acute Condition: UNKNOWN Forms: [employer] ([place] Islander)
[2018-03-04 12:16] LABS: BASO # 0.02 K/mm3 (0.0-2.0); BASO % 0.2 % (0.0-3.0); EOS % 0.1 % (1.5-5.0); GRAN # 7.28 (1.4-6.5); GRAN % 73.5 % (50.0-68.0); HEMOGLOBIN 14.5 g/dL (14.0-18.0); LYMPH # 1.6 (1.2-3.4); LYMPH % 15.8 % (22.0-35.0); MEAN CELL VOLUME 90.5 fl (80.0-105.0); MEAN CORPUSCULAR HEMOGLOBIN 30.7 pg (25.0-35.0); MEAN PLATELET VOLUME 9.2 fl (7.0-11.0); MONO % 10.4 % (1.0-6.0); RBC 4.72 10^6/uL (3.5-6.1); RED CELL DISTRIBUTION WIDTH 12.7 % (11.5-14.5); WHITE BLOOD COUNT 9.9 10^3/ul (4.5-11.0)
[2018-03-04 12:30] LABS: ACETAMINOPHEN < 10.0 ug/ml (10.0-20.0); SALICYLATE < 1 mg/dL (2.0-20.0)
[2018-03-04 12:35] LABS: ALB/GLOB RATIO 1.4 (1.1-1.8); ALBUMIN 4.4 g/dL (3.0-4.8); ALT/SGPT 33 U/L (7-56); AST/SGOT 27 U/L (17-59); BLOOD UREA NITROGEN 10 mg/dL (7-21); CALCIUM 9.2 mg/dL (8.4-10.5); GFR NON-AFRICAN AMERICAN > 60
[2018-03-04 12:49] LABS: CK-MB 3.6 ng/mL (0.0-3.6)
--- NOTE | 2018-03-04 13:08 | RAD ---
Date of service: 03/04/2018 HISTORY: psych COMPARISON: 02/27/2018. FINDINGS: LUNGS: The lungs are well inflated and clear. PLEURA: No significant pleural effusion identified, no pneumothorax apparent. CARDIOVASCULAR: Normal. OSSEOUS STRUCTURES: No significant abnormalities. VISUALIZED UPPER ABDOMEN: Normal. OTHER FINDINGS: None. IMPRESSION: No active pulmonary disease.
[2018-03-04 13:56] LABS: URINE BILIRUBIN NEGATIVE (NEGATIVE); URINE BLOOD SMALL (NEGATIVE); URINE GLUCOSE (UA) NEGATIVE (NEGATIVE); URINE LEUKOCYTE ESTERASE NEGATIVE Leu/uL (NEGATIVE); URINE PROTEIN TRACE mg/dL (<30 mg/dL)
[2018-03-04 13:59] LABS: URINE APPEARANCE SL CLOUDY (CLEAR); URINE COLOR YELLOW (YELLOW)
[2018-03-04 14:01] VITALS: RESP 18
[2018-03-04 14:02] LABS: URINE WBC NEGATIVE /hpf (0-6)
[2018-03-04 14:23] LABS: BARBITURATES, UR NEGATIVE (NEGATIVE); BENZODIAZEPINES, UR NEGATIVE (NEGATIVE); OPIATES, UR NEGATIVE (NEGATIVE); PHENCYCLIDINE, UR NEGATIVE (NEGATIVE)
--- NOTE | 2018-03-05 06:36 | CARD ---
APPROVED REPORT Date of service: 03/04/2018 EKG Measurement Heart [id number] <Conclusion> Normal sinus rhythm Normal ECG
--- NOTE | 2018-03-05 07:16 | ED PDOC ---
Physical Exam Vital Signs Temp Pulse Resp BP Pulse Ox 03/05/18 06:53 75 18 115/72 100 03/05/18 02:59 73 18 110/87 100 03/04/18 20:00 80 18 118/82 100 03/04/18 14:00 79 18 126/79 97 03/04/18 11:35 99.1 F 99 H 16 118/78 96 Medical Decision Making ED Course and Treatment: 03/05/18 07:00 Case endorsed to me by Dr. Gonsalez pending transfer to [facility]. 03/05/18 19:[address] Gonaslez pending transfer to [facility] - Lab Interpretations Lab Results: 03/04/18 11:45 03/04/18 11:45 Lab Results 03/04/18 13:50: Urine Opiates Screen Negative, Urine Methadone Screen Negative, Ur Barbiturates Screen Negative, Ur Phencyclidine Scrn Negative, Ur Amphetamines Screen Negative, U Benzodiazepines Scrn Negative, U Oth Cocaine Metabols Negative, U Cannabinoids Screen Negative 03/04/18 13:50: Urine Color Yellow, Urine Appearance Sl cloudy, Urine pH 7.0, Ur Specific [place] 1.020, Urine Protein Trace H, Urine Glucose (UA) Negative, Urine Ketones Trace H, Urine Blood Small H, Urine Nitrate Negative, Urine Bilirubin Negative, Urine Urobilinogen 1.0 H, Ur Leukocyte Esterase Negative, Urine RBC 1 - 3, Urine WBC Negative 03/04/18 11:45: Alcohol, Quantitative < 10 03/04/18 11:45: Salicylates < 1 L, Acetaminophen < 10.0 L 03/04/18 11:45: Sodium 140, Potassium 3.7, Chloride 106, Carbon Dioxide 26, Anion Gap 12, BUN 10, Creatinine 0.9, Est GFR ( Amer) > 60, Est GFR (Non- Af Amer) > 60, Random Glucose 100, Calcium 9.2, Magnesium 2.2, Total Bilirubin 0.6, AST 27, ALT 33, Alkaline Phosphatase 82, Total Creatine Kinase 605 H, CK-MB (CK-2) 3.6, CK-MB (CK-2) % Cancelled, Total Protein 7.5, Albumin 4.4, Globulin 3.1, Albumin/Globulin Ratio 1.4 03/04/18 11:45: WBC 9.9 D, RBC 4.72, Hgb 14.5, Hct 42.7, MCV 90.5, MCH 30.7, MCHC 34.0, RDW 12.7, Plt Count 233, MPV 9.2, Gran % 73.5 H, Lymph % (Auto) 15.8 L, [place] % (Auto) 10.4 H, Eos % (Auto) 0.1 L, Baso % (Auto) 0.2, Gran # 7.28 H, Lymph # (Auto) 1.6, [place] # (Auto) 1.0 H, Eos # (Auto) 0.0, Baso # (Auto) 0.02 - RAD Interpretation Radiology Orders: 03/04/18 11:35 CHEST PORTABLE [RAD] Stat - Medication Orders Current Medication Orders: Discontinued Medications Lorazepam (Ativan) 1 mg PO ONCE ONE; Protocol Stop: 03/05/18 00:31 Last Admin: 03/05/18 00:30 Dose: 1 mg - Scribe Statement The provider has reviewed the documentation as recorded by the Rohan Manning Provider Scribe Attestation: All medical record entries made by the Rohan were at my direction and personally dictated by me. I have reviewed the chart and agree that the record accurately reflects my personal performance of the history, physical exam, medical decision making, and the department course for this patient. I have also personally directed, reviewed, and agree with the discharge instructions and disposition. Disposition/Present on Arrival - Present on Arrival Any Indicators Present on Arrival: No History of DVT/PE: No History of Uncontrolled Diabetes: No Urinary Catheter: No History of Decub. Ulcer: No History Surgical Site Infection Following: None - Disposition Have Diagnosis and Disposition been Completed?: Yes Diagnosis: Hematuria, Schizophrenia Disposition: Transfer [facility] Disposition Time: 19:00 Condition: GOOD Forms: [employer] (Armenian)
[2018-03-05 18:29] VITALS: TEMP 98.7
--- NOTE | 2018-03-05 19:16 | ED PDOC ---
Physical Exam Vital Signs Temp Pulse Resp BP Pulse Ox 03/05/18 18:28 98.7 F 88 18 120/90 97 03/05/18 14:58 84 18 112/64 100 03/05/18 10:30 80 18 120/77 99 03/05/18 07:45 97.8 F 72 18 118/65 100 03/05/18 06:53 75 18 115/72 100 03/05/18 02:59 73 18 110/87 100 03/04/18 20:00 80 18 118/82 100 03/04/18 14:00 79 18 126/79 97 03/04/18 11:35 99.1 F 99 H 16 118/78 96 Medical Decision Making ED Course and Treatment: 03/05/18 19:15 Patient endorsed to me by . Pending transfer for [facility]. 03/05/18 21:06 Pt transferred to [facility] via BLS. - Lab Interpretations Lab Results: 03/04/18 11:45 03/04/18 11:45 Lab Results 03/04/18 13:50: Urine Opiates Screen Negative, Urine Methadone Screen Negative, Ur Barbiturates Screen Negative, Ur Phencyclidine Scrn Negative, Ur Amphetamines Screen Negative, U Benzodiazepines Scrn Negative, U Oth Cocaine Metabols Negative, U Cannabinoids Screen Negative 03/04/18 13:50: Urine Color Yellow, Urine Appearance Sl cloudy, Urine pH 7.0, Ur Specific [place] 1.020, Urine Protein Trace H, Urine Glucose (UA) Negative, Urine Ketones Trace H, Urine Blood Small H, Urine Nitrate Negative, Urine Bilirubin Negative, Urine Urobilinogen 1.0 H, Ur Leukocyte Esterase Negative, Urine RBC 1 - 3, Urine WBC Negative 03/04/18 11:45: Alcohol, Quantitative < 10 03/04/18 11:45: Salicylates < 1 L, Acetaminophen < 10.0 L 03/04/18 11:45: Sodium 140, Potassium 3.7, Chloride 106, Carbon Dioxide 26, Anion Gap 12, BUN 10, Creatinine 0.9, Est GFR ( Amer) > 60, Est GFR (Non- Af Amer) > 60, Random Glucose 100, Calcium 9.2, Magnesium 2.2, Total Bilirubin 0.6, AST 27, ALT 33, Alkaline Phosphatase 82, Total Creatine Kinase 605 H, CK-MB (CK-2) 3.6, CK-MB (CK-2) % Cancelled, Total Protein 7.5, Albumin 4.4, Globulin 3.1, Albumin/Globulin Ratio 1.4 03/04/18 11:45: WBC 9.9 D, RBC 4.72, Hgb 14.5, Hct 42.7, MCV 90.5, MCH 30.7, MCHC 34.0, RDW 12.7, Plt Count 233, MPV 9.2, Gran % 73.5 H, Lymph % (Auto) 15.8 L, [place] % (Auto) 10.4 H, Eos % (Auto) 0.1 L, Baso % (Auto) 0.2, Gran # 7.28 H, Lymph # (Auto) 1.6, [place] # (Auto) 1.0 H, Eos # (Auto) 0.0, Baso # (Auto) 0.02 - RAD Interpretation Radiology Orders: 03/04/18 11:35 CHEST PORTABLE [RAD] Stat - Medication Orders Current Medication Orders: Divalproex Sodium (Depakote Dr(*Bid*)) 500 mg PO [facility] ALEJANDRA Olanzapine (Zyprexa Zydis) 5 mg PO AM[facility] ALEJANDRA; Protocol Trazodone HCl (Desyrel) 50 mg PO HS ALEJANDRA Discontinued Medications Diphenhydramine HCl (Benadryl) 50 mg PO STAT STA Stop: 03/05/18 07:44 Last Admin: 03/05/18 07:57 Dose: 50 mg Lorazepam (Ativan) 1 mg PO ONCE ONE; Protocol Stop: 03/05/18 00:31 Last Admin: 03/05/18 00:30 Dose: 1 mg Lorazepam (Ativan) 1 mg PO STAT STA Stop: 03/05/18 07:54 Last Admin: 03/05/18 08:02 Dose: 1 mg - Scribe Statement The provider has reviewed the documentation as recorded by the Zacharyibpriscila Lazaro Provider Scribe Attestation: All medical record entries made by the Scribe were at my direction and personally dictated by me. I have reviewed the chart and agree that the record accurately reflects my personal performance of the history, physical exam, medical decision making, and the department course for this patient. I have also personally directed, reviewed, and agree with the discharge instructions and disposition. Disposition/Present on Arrival - Present on Arrival Any Indicators Present on Arrival: No History of DVT/PE: No History of Uncontrolled Diabetes: No Urinary Catheter: No History of Decub. Ulcer: No History Surgical Site Infection Following: None - Disposition Have Diagnosis and Disposition been Completed?: Yes Diagnosis: Hematuria, Schizophrenia Disposition: Transfer [facility] Disposition Time: 21:00 Condition: UNKNOWN Forms: [employer] (Chinese)
[2018-03-05 21:09] VITALS: BP 120/80; PULSE 86; O2SAT 100
--- NOTE | 2018-03-05 21:20 | CON ---
DATE: 03/05/2018 HISTORY OF PRESENT ILLNESS: In short, the patient is 37-year-old male with reported history of schizoaffective disorder, bipolar type. The patient was noncompliant with the medication, was brought in by police because the patient was agitated. The patient was following people on the streets, was completely disorganized, was not able to sleep. In the emergency room, the patient became very agitated, was threatening staff. Psychiatrist on-call recommended screening. The patient was evaluated by [facility], was accepted. At present moment, the patient is waiting for bed to be available. This commercial insurance underwriter reviewed previous history. The patient has history of schizophrenia, had admissions to this facility in psychiatric inpatient unit under Dr. Meza service on 01/2018. The patient was on the following medications, Zyprexa, Depakote as well as trazodone. We will resume that medication. This commercial insurance underwriter attempted to speak to the patient. The patient presented to be disorganized, was posturing, also religiously preoccupied. Overall was calm. This commercial insurance underwriter educated the patient about plan. The patient is aware that he will be transferred to [facility]. Vital signs: Reviewed, seems to be stable. Medications reviewed. This commercial insurance underwriter started Depakote 500 mg twice a day, Zyprexa Zydis as well as trazodone. Labs reviewed. Toxicology was negative for any substances. Microbiology reviewed. MENTAL STATUS EXAMINATION: The patient presented to be odd and disorganized. Overall pleasant, superficially cooperative. Intense eye contact. Speech was minimal, yes-no answers. Thought process disorganized. Thought content, the patient obviously presented to be disorganized, psychotic and responding to internal stimuli. Insight and judgment seems to be impaired. Impulses are unpredictable. IMPRESSION: Acute exacerbation of chronic schizophrenia. The patient also has questionable schizoaffective disorder, bipolar type. PLAN: The patient is waiting for bed to be available at [facility]. The patient is currently on one-to-one for elopement risk. The patient was resumed on Zyprexa, Depakote as well as trazodone. We will follow up on this patient on daily basis until the patient will be transferred to [facility]. Meanwhile, the patient needs to stay in the hospital for further evaluation and stabilization. Thank you very much for letting me participate in the care of your patient. Emi Serrano MD
[2018-03-05] MEDS ORDERED: OLANZapine 5 mg Disintegrating Tab PO SCH (22:00)
[2018-03-05] MEDS ORDERED: Divalproex 500 mg DR(BID formulation) PO SCH (22:00)
--- NOTE | 2018-03-06 13:33 | CP.PCM.PCO ---
Physician Communication Note - Physician Communication Note Physician Communication Note: pt was transfered to [facility]
== END 2018-03-05 21:06 | disposition short-term general hospital (02) ==
LOC: ED 11:30
DX: F20.9 Schizophrenia, unspecified (principal); R31.9 Hematuria, unspecified; F17.210 Nicotine dependence, cigarettes, uncomplicated
CPT/HCPCS: 71045; 80053; 81001; 82550; 82553; 83735; 85025; 90791; 93005; 99285; G0480

== ENCOUNTER 2018-03-23 14:22 | Inpatient (IN) | payer MEDICARE, OTHER ==
[2018-03-23 14:22] VITALS: BMI 27.6
--- NOTE | 2018-03-23 14:36 | ED PDOC ---
Arrival/HPI - General Chief Complaint: Psychiatric Evaluation Time Seen by Provider: 03/23/18 14:30 Historian: Patient - History of Present Illness Narrative History of Present Illness (Text): 03/23/18 14:33 37 y/o male, no significant pmh, allergic to haldol?, biba with the police for psychiatric evaluation x 1 day. Pt. stated that he has some problem at home psychiatrically, people don't belief who he is and dont belief he can help other people. Pt. has no chest pain or shortness of breath, no night sweat, no numbness or tingling, no palpitation, no other medical or psychological complaints. Past Medical History - Provider Review Nursing Documentation Reviewed: Yes - Infectious Disease Hx of Infectious Diseases: None - Cardiac Hx Cardiac Disorders: No - Pulmonary Hx Respiratory Disorders: No - Neurological Hx Neurological Disorder: No - HEENT Hx HEENT Disorder: No - Renal Hx Renal Disorder: No - Endocrine/Metabolic Hx Endocrine Disorders: No - Hematological/Oncological Hx Blood Disorders: No - Integumentary Hx Dermatological Disorder: No - Musculoskeletal/Rheumatological Hx Musculoskeletal Disorders: Yes - Gastrointestinal Hx Gastrointestinal Disorders: No - Genitourinary/Gynecological Hx Genitourinary Disorders: No - Psychiatric Hx Psychophysiologic Disorder: Yes Hx Schizophrenia: Yes Hx Substance Use: Yes - Surgical History Hx Inguinal Hernia Repair: Yes - Anesthesia Hx Anesthesia: Yes - Suicidal Assessment Feels Threatened In Home Enviroment: Yes Family/Social History - Physician Review Nursing Documentation Reviewed: Yes Family/Social History: Unknown Family HX Smoking Status: Heavy Smoker > 10 Cigarettes Daily Hx Alcohol Use: No Hx Substance Use: Yes Hx Substance Use Treatment: No Allergies/Home Meds Allergies/Adverse Reactions: Allergies haloperidol [From Haldol] Adverse Reaction (Verified 03/23/18 14:30) PAIN cramping Home Medications: Home Meds Medication Instructions Recorded Confirmed Benztropine [Cogentin] 1 mg PO DAILY 02/23/18 03/23/18 Review of Systems - Review of Systems Constitutional: absent: Fatigue, Fevers Eyes: absent: Vision Changes ENT: absent: Hearing Changes Respiratory: absent: SOB, Cough Cardiovascular: absent: Chest Pain Gastrointestinal: absent: Abdominal Pain, Diarrhea, Nausea, Vomiting Skin: absent: Rash, Pruritis Neurological: absent: Headache, Dizziness Psychiatric: absent: Anxiety, Depression, Suicidal Ideation Physical Exam - Systems Exam Head: Present: Atraumatic, Normocephalic Pupils: Present: PERRL Extroacular Muscles: Present: EOMI Conjunctiva: Present: Normal Mouth: Present: Moist Mucous Membranes Neck: Present: Normal Range of Motion Respiratory/Chest: Present: Clear to Auscultation, Good Air Exchange. No: Respiratory Distress, Accessory Muscle Use Cardiovascular: Present: Regular Rate and Rhythm, Normal S1, S2. No: Murmurs Abdomen: No: Tenderness, Distention, Peritoneal Signs Back: Present: Normal Inspection Upper Extremity: Present: Normal Inspection. No: Cyanosis, Edema Lower Extremity: Present: Normal Inspection. No: Edema Neurological: Present: GCS=15, CN II-XII Intact, Speech Normal, Motor Func Grossly Intact, Gait Normal, Memory Normal Skin: Present: Warm, Dry, Normal Color. No: Rashes Psychiatric: Present: Alert, Oriented x 3, Normal Insight, Normal Concentration Medical Decision Making ED Course and Treatment: 03/23/18 14:35 -Labs -ekg -cxr -PES paged -Observe and reassess 03/23/18 15:41 -EKG: SR @ 69 BPM, no ST elevation or depression, no T wave inversion. Pt pur porsely shake during the ekg but resolved upong removal of lead. -CXR Er wet read show no active disease -Labs show no acute findings -Acetaminophen/salicylate/alcohol within normal limit -UA show no UTI -UDS show no acute findings -Pt. is medically clear and stable for psychiatric evaluation. 03/23/18 16:27 -PES Ronald evaluated the patient, spoke to the psychiatrist dread, recommend admission to DR. Emi Avilez. - RAD Interpretation Radiology Orders: 03/23/18 14:32 CHEST PORTABLE [RAD] Stat - PA / SHOP WORKER / Resident Statement MD/DO has reviewed & agrees with the documentation as recorded. Disposition/Present on Arrival - Present on Arrival Any Indicators Present on Arrival: No History of DVT/PE: No History of Uncontrolled Diabetes: No Urinary Catheter: No History of Decub. Ulcer: No History Surgical Site Infection Following: None - Disposition Have Diagnosis and Disposition been Completed?: Yes Diagnosis: Schizophrenia Disposition: HOSPITALIZED Disposition Time: 16:28 Patient Plan: Admission Condition: STABLE Forms: [employer] (Kinyarwanda)
[2018-03-23 15:06] LABS: BASO # 0.03 K/mm3 (0.0-2.0); BASO % 0.3 % (0.0-3.0); EOS % 0.1 % (1.5-5.0); GRAN # 6.5 (1.4-6.5); GRAN % 64.5 % (50.0-68.0); HEMOGLOBIN 16.1 g/dL (14.0-18.0); LYMPH # 2.8 (1.2-3.4); LYMPH % 28.1 % (22.0-35.0); MEAN CELL VOLUME 90.6 fl (80.0-105.0); MEAN CORPUSCULAR HEMOGLOBIN 30.7 pg (25.0-35.0); MEAN CORPUSCULAR HGB CONC 33.9 g/dl (31.0-37.0); MEAN PLATELET VOLUME 8.9 fl (7.0-11.0); MONO # 0.7 (0.1-0.6); RBC 5.24 10^6/uL (3.5-6.1); RED CELL DISTRIBUTION WIDTH 12.5 % (11.5-14.5); WHITE BLOOD COUNT 10.1 10^3/uL (4.5-11.0)
[2018-03-23 15:18] LABS: ACETAMINOPHEN < 10.0 ug/ml (10.0-20.0); SALICYLATE < 1 mg/dL (2.0-20.0)
[2018-03-23 15:23] LABS: ALB/GLOB RATIO 1.4 (1.1-1.8); ALBUMIN 4.8 g/dL (3.0-4.8); ALT/SGPT 31 U/L (7-56); AST/SGOT 26 U/L (17-59); BLOOD UREA NITROGEN 10 mg/dL (7-21); CALCIUM 9.4 mg/dL (8.4-10.5); GFR NON-AFRICAN AMERICAN > 60
--- NOTE | 2018-03-23 15:25 | RAD ---
Date of service: 03/23/2018 HISTORY: medical clearance COMPARISON: 03/04/2018. FINDINGS: LUNGS: The lungs are well inflated and clear. PLEURA: No pleural effusions or pneumothorax. CARDIOVASCULAR: The heart is normal in size. No aortic atherosclerotic calcification present. OSSEOUS STRUCTURES: Within normal limits for the patient's age. VISUALIZED UPPER ABDOMEN: Normal. OTHER FINDINGS: None. IMPRESSION: No active pulmonary disease.
[2018-03-23 15:54] LABS: BARBITURATES, UR NEGATIVE (NEGATIVE); BENZODIAZEPINES, UR NEGATIVE (NEGATIVE); OPIATES, UR NEGATIVE (NEGATIVE); PHENCYCLIDINE, UR NEGATIVE (NEGATIVE)
[2018-03-23 16:07] LABS: URINE BILIRUBIN NEGATIVE (NEGATIVE); URINE BLOOD MODERATE (NEGATIVE); URINE GLUCOSE (UA) NEGATIVE (NEGATIVE); URINE LEUKOCYTE ESTERASE NEGATIVE Leu/uL (NEGATIVE); URINE PROTEIN NEGATIVE mg/dL (<30 mg/dL); URINE UROBILINOGEN 0.2 E.U./dL (<1 E.U./dL)
[2018-03-23 16:13] LABS: URINE COLOR LIGHT YELLOW (YELLOW)
[2018-03-23 16:14] LABS: URINE APPEARANCE CLEAR (CLEAR)
[2018-03-23 16:34] LABS: URINE BACTERIA FEW (NEG)
[2018-03-23 17:46] VITALS: O2SAT 75
[2018-03-23] MEDS: Divalproex 250 mg ER (ONCE DAILY formulation) PO SCH (21:35)
[2018-03-23] MEDS ORDERED: Alum-Mag Hydrox-Simethicone Susp (30 mL) PO PRN (22:14)
[2018-03-23] MEDS ORDERED: Magnesium Hydroxide Susp 30 ml UD PO PRN (22:14)
--- NOTE | 2018-03-24 04:25 | PCM.BM ---
<Jaydon Ramirez O - Last Filed: 03/24/18 04:23> Treatment Plan Problems - Problems identified on initial assessmt Delusions Date Initiated: 03/23/18 Time Initiated: 21:00 Assessment reference: NA Status: Active Altered slep pattern Date Initiated: 03/23/18 Time Initiated: 21:00 Assessment reference: NA Status: Active nON-COMPLIANCE WITH MEDICATION Date Initiated: 03/23/18 Time Initiated: 23:00 Assessment reference: NA Status: Active Treatment assets and liabiliti Patient Assests: cooperative, physically healthy, good support system, negotiates basic needs Patient Liabilities: poor support system, relationship conflicts - Milieu Protocol Maintain good personal hygiene: daily Encourage regular showers, daily Remind patient to perform daily oral care, daily Assist patient to perform ADL's Maintain personal safety: daily Educate patient to report safety concerns to staff, daily Monitor environment for contraband/sharps Medication safety: Monitor for expected outcome, potential side effects: daily, Assess barriers to learning: daily, Assess readiness for medication education: daily Family Contact Family involvement: Family/SO is involved Family contact: Patient declines to allow family contact at present - Goals for Treatment Patient goals for treatment: To get good slep at night Discharge/Continuing Care - Education Needs Education Needs: Patient Medication, Patient Diagnosis/Disease Process - Discharge Discharge Criteria: Free of paranoid thoughts, Normal sleep pattern <Emi Serrano A - Last Filed: 03/24/18 08:17> - Diagnosis (1) Schizophrenia Status: Acute Interventions: 03/24/18 08:17 Psychoeducation/psychotherapy Psychopharmacology/adjustment of medications as needed/ monitoring possible side effects Evaluate pt on daily basis Compliance with medications and follow up appointments Long acting medication if pt is noncompliant with pill form Suicide and homicide risk assessment and prevention, coping strategies, safety plan Relapse prevention Reduction of symptoms Improve functional status Possible assertive community treatment Cognitive behavioral therapy Family involvement Possible social skill training as outpatient
[2018-03-24 06:54] VITALS: RESP 20
[2018-03-24 08:19] LABS: GLUCOSE,FASTING 96 mg/dL (65-110); HDL CHOLESTEROL 46 mg/dL (29-60)
[2018-03-24 08:30] LABS: LDL CHOLESTEROL 82 mg/dL (0-129)
--- NOTE | 2018-03-24 10:10 | CARD ---
APPROVED REPORT Date of service: 03/23/2018 EKG Measurement Heart [id number] <Conclusion> Sinus rhythm Artifact present PWNL Probably no change
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
[2018-03-24] MEDS: Divalproex 250 mg ER (ONCE DAILY formulation) PO SCH (21:00)
[2018-03-25 06:50] LABS: PH,URINE 6.5 (4.7-8.0); URINE BILIRUBIN NEGATIVE (NEGATIVE); URINE BLOOD TRACE-INTACT (NEGATIVE); URINE GLUCOSE (UA) NEGATIVE (NEGATIVE); URINE LEUKOCYTE ESTERASE NEGATIVE Leu/uL (NEGATIVE); URINE PROTEIN NEGATIVE mg/dL (<30 mg/dL); URINE UROBILINOGEN 0.2 E.U./dL (<1 E.U./dL)
[2018-03-25 06:56] LABS: URINE APPEARANCE CLEAR (CLEAR); URINE COLOR YELLOW (YELLOW)
[2018-03-25 07:00] LABS: URINE EPITHELIAL CELLS 0 - 2 /hpf (0-5); URINE WBC 0 - 2 /hpf (0-6)
--- NOTE | 2018-03-25 13:43 | PCM.PYCHPN ---
Psychiatric Progress Note - Psychiatric Progress Note Patient seen today, length of contact: 30 minutes Patient Chief Complaint: "God sending me messages through the action of people and talking with, if I could hear God's voice, I would be in restraint, right?, what if I am for real?, what are your restoration believes, do you believe in Devan Ramone?" Problems Identified/Issues Discussed: Suicide/ homicide prevention, past psychiatric h/o, current psychiatric symptoms, medical problems, risk/benefits and alternatives of medications, medications compliance, coping strategies, substance abuse h/o, relapse prevention, importance of follow up with psychiatrist and therapist, discharge plan. Medical Problems: patient is relatively healthy was seen by medical team and the emergency room Diagnostic Results: 03/23/18 14:33 03/23/18 14:33 Lab Results 03/25/18 08:00: Valproic Acid 39 L 03/25/18 06:20: Urine Color Yellow, Urine Appearance Clear, Urine pH 6.5, Ur Specific [place] <= 1.005, Urine Protein Negative, Urine Glucose (UA) Negative, Urine Ketones Negative, Urine Blood Trace-intact H, Urine Nitrate Negative, Urine Bilirubin Negative, Urine Urobilinogen 0.2, Ur Leukocyte Esterase Negative, Urine RBC 1 - 3, Urine WBC 0 - 2, Ur Epithelial Cells 0 - 2, Urine Bacteria None 03/24/18 07:00: Hemoglobin A1c 5.2 03/24/18 07:00: RPR Nonreactive 03/24/18 07:00: TSH 3rd Generation 0.38 L 03/24/18 07:00: Fasting Glucose 96, Triglycerides 102, Cholesterol 145, LDL Cholesterol Direct 82, HDL Cholesterol 46 03/23/18 15:05: Urine Color Light yellow, Urine Appearance Clear, Urine pH 7.0, Ur Specific [place] <= 1.005, Urine Protein Negative, Urine Glucose (UA) Negative, Urine Ketones Negative, Urine Blood Moderate H, Urine Nitrate Negative, Urine Bilirubin Negative, Urine Urobilinogen 0.2, Ur Leukocyte Esterase Negative, Urine RBC 5 - 10, Urine WBC 1 - 3, Ur Epithelial Cells 1 - 3, Urine Bacteria Few 03/23/18 15:05: Urine Opiates Screen Negative, Urine Methadone Screen Negative, Ur Barbiturates Screen Negative, Ur Phencyclidine Scrn Negative, Ur Amphetamines Screen Negative, U Benzodiazepines Scrn Negative, U Oth Cocaine Metabols Negative, U Cannabinoids Screen Negative 03/23/18 14:33: Salicylates < 1 L, Acetaminophen < 10.0 L 03/23/18 14:33: Alcohol, Quantitative < 10 03/23/18 14:33: WBC 10.1, RBC 5.24, Hgb 16.1, Hct 47.5, MCV 90.6, MCH 30.7, MCHC 33.9, RDW 12.5, Plt Count 338, MPV 8.9, Gran % 64.5, Lymph % (Auto) 28.1, [place] % (Auto) 7.0 H, Eos % (Auto) 0.1 L, Baso % (Auto) 0.3, Gran # 6.50, Lymph # (Auto) 2.8, [place] # (Auto) 0.7 H, Eos # (Auto) 0.0, Baso # (Auto) 0.03 03/23/18 14:33: Sodium 136, Potassium 3.6, Chloride 94 L, Carbon Dioxide 32, Anion Gap 13, BUN 10, Creatinine 0.8, Est GFR ( Amer) > 60, Est GFR (Non- Af Amer) > 60, Random Glucose 83, Calcium 9.4, Total Bilirubin 0.2, AST 26, ALT 31, Alkaline Phosphatase 100, Total Protein 8.2, Albumin 4.8, Globulin 3.4, Albumin/Globulin Ratio 1.4 Vital Signs Temp Pulse Resp BP Pulse Ox 03/25/18 07:17 98.4 F 75 20 115/71 03/24/18 15:15 65 118/68 03/24/18 06:54 97.3 F L 63 20 112/53 L 03/24/18 03:51 18 03/23/18 17:45 98 F 75 19 125/75 75 L 03/23/18 14:22 98.6 F 89 18 132/88 99 DSM 5 Symptoms Update: 37 y/o male with history of schizophrenia, multiple admissions to the psychiatric inpatient unit and chronic noncompliance with the medications and follow up appointments, patient recently was discharged from [facility], patient was brought in by police for evaluation of bizarre and disorganized behavior, patient was discharged from [facility] on 03/18/2018, patient presented to be disorganized in the emergency room, said that he is "[place]", patient requires further evaluation and stabilization and adjustment of medications. patient was seen today with social work job titles, patient presented to be disorganized, anxious, religiously preoccupied, "God sending me messages through the action of people I am talking with, I could see that this hospital is programmed, I could hear an echo, if I could hear God's voice, I would be in restraint, right?, what if I am for real?, what are your restoration believes, do you believe in Devan Ramone?". when pt was asked how God is sending him messages, pt answered that SW was holding a computer mouse and it means God is sending him messages. As per nursing staff reported patient is compliant with medications, no aggression or agitation, but patient is oddly related, thought process is disorganized. Patient tolerates medications well, no side effects observed or reported, patient was on Prolixin Decanoate, medical records was requested from [facility], awaiting for discharge summary. Collaterals were obtained from patient mother, please see social work job titles notes for more detailed information. Patient was agitated, locked himself in the bathroom, was threatening to destroyed the house if he will be not brought back to the hospital, mother called 911. patient was seen by medical team for neck pain. Impression: schizophrenia Medication Change: Yes (Tal Lee ) Medical Record Reviewed: Yes Consults ordered or reviewed: medical consult appreciated will follow-up on recommendations Mental Status Examination - Cognitive Function Orientation: Person, Place Memory: Impaired Attention: Poor Concentration: Poor Association: Loose Fund of Knowledge: WNL - Mood Mood: Neutral - Affect Affect: Constricted, Other (at times giggling inappropriately) - Formal Thought Process Formal Thought Process: Hallucinations, Delusions, Paranoia, Loosening of associations - Suicidal Ideation Suicidal Ideation: No - Homicidal Ideation Homicidal Ideation: No Goal/Treatment Plan - Goal/Treatment Plan Need for Continued Stay: Remain at risks for inpatient hospitalization, Severe depression anxiety, Discharge may exacerbated symptoms, Failed transitioning, Severe functional impairment Progress Toward Problem(s) and Goals/Treatment Plan: Milieu/structure/supportive therapy Medical consult appreciated, see medical team note for more detailed info SW consultation for discharge plan and social issues Depakote level is low 32 03/25/2018 Med management medications confirmed by pharmacy and resumed Patient got Prolixin decanoate, we'll find out the dose N date of injection Prolixin 5 mg twice a day for psychosis Cogentin will be increased to 1 mg twice a day for possible EPS Klonopin 0.5 mg twice a day was added for anxiety and restlessness Family involvement Follow up on labs Will monitor closely Pt was educated about risk/benefits and alternatives of medications, coping strategies (safety plan, suicide prevention), relapse prevention, importance of follow up with psychiatrist and therapist, stay away from drugs/alcohol/smoking Estimated Date of D/C: 04/03/18
[2018-03-25] MEDS: Divalproex 250 mg ER (ONCE DAILY formulation) PO SCH (21:29)
--- NOTE | 2018-03-26 14:21 | PCM.PYCHPN ---
Psychiatric Progress Note - Psychiatric Progress Note Patient seen today, length of contact: 30 minutes Patient Chief Complaint: "I don't feel that I am stKarl anymore, I think it is because of medication". Problems Identified/Issues Discussed: Suicide/ homicide prevention, past psychiatric h/o, current psychiatric symptoms, medical problems, risk/benefits and alternatives of medications, medications compliance, coping strategies, substance abuse h/o, relapse prevention, importance of follow up with psychiatrist and therapist, discharge plan. Medical Problems: patient is relatively healthy was seen by medical team and the emergency room Diagnostic Results: 03/23/18 14:33 03/23/18 14:33 Lab Results 03/25/18 08:00: Valproic Acid 39 L 03/25/18 06:20: Urine Color Yellow, Urine Appearance Clear, Urine pH 6.5, Ur Specific [place] <= 1.005, Urine Protein Negative, Urine Glucose (UA) Negative, Urine Ketones Negative, Urine Blood Trace-intact H, Urine Nitrate Negative, Urine Bilirubin Negative, Urine Urobilinogen 0.2, Ur Leukocyte Esterase Negative, Urine RBC 1 - 3, Urine WBC 0 - 2, Ur Epithelial Cells 0 - 2, Urine Bacteria None 03/24/18 07:00: Hemoglobin A1c 5.2 03/24/18 07:00: RPR Nonreactive 03/24/18 07:00: TSH 3rd Generation 0.38 L 03/24/18 07:00: Fasting Glucose 96, Triglycerides 102, Cholesterol 145, LDL Cholesterol Direct 82, HDL Cholesterol 46 03/23/18 15:05: Urine Color Light yellow, Urine Appearance Clear, Urine pH 7.0, Ur Specific [place] <= 1.005, Urine Protein Negative, Urine Glucose (UA) Negative, Urine Ketones Negative, Urine Blood Moderate H, Urine Nitrate Negative, Urine Bilirubin Negative, Urine Urobilinogen 0.2, Ur Leukocyte Esterase Negative, Urine RBC 5 - 10, Urine WBC 1 - 3, Ur Epithelial Cells 1 - 3, Urine Bacteria Few 03/23/18 15:05: Urine Opiates Screen Negative, Urine Methadone Screen Negative, Ur Barbiturates Screen Negative, Ur Phencyclidine Scrn Negative, Ur Amphetamines Screen Negative, U Benzodiazepines Scrn Negative, U Oth Cocaine Metabols Negative, U Cannabinoids Screen Negative 03/23/18 14:33: Salicylates < 1 L, Acetaminophen < 10.0 L 10/28/18 14:33: Alcohol, Quantitative < 10 03/23/18 14:33: WBC 10.1, RBC 5.24, Hgb 16.1, Hct 47.5, MCV 90.6, MCH 30.7, MCHC 33.9, RDW 12.5, Plt Count 338, MPV 8.9, Gran % 64.5, Lymph % (Auto) 28.1, [place] % (Auto) 7.0 H, Eos % (Auto) 0.1 L, Baso % (Auto) 0.3, Gran # 6.50, Lymph # (Auto) 2.8, [place] # (Auto) 0.7 H, Eos # (Auto) 0.0, Baso # (Auto) 0.03 03/23/18 14:33: Sodium 136, Potassium 3.6, Chloride 94 L, Carbon Dioxide 32, Anion Gap 13, BUN 10, Creatinine 0.8, Est GFR ( Amer) > 60, Est GFR (Non- Af Amer) > 60, Random Glucose 83, Calcium 9.4, Total Bilirubin 0.2, AST 26, ALT 31, Alkaline Phosphatase 100, Total Protein 8.2, Albumin 4.8, Globulin 3.4, Albumin/Globulin Ratio 1.4 Vital Signs Temp Pulse Resp BP Pulse Ox 03/25/18 07:17 98.4 F 75 20 115/71 03/24/18 15:15 65 118/68 03/24/18 06:54 97.3 F L 63 20 112/53 L 03/24/18 03:51 18 03/23/18 17:45 98 F 75 19 125/75 75 L 03/23/18 14:22 98.6 F 89 18 132/88 99 DSM 5 Symptoms Update: 37 y/o male with history of schizophrenia, multiple admissions to the psychiatric inpatient unit and chronic noncompliance with the medications and follow up appointments, patient recently was discharged from [facility], patient was brought in by police for evaluation of bizarre and disorganized behavior, patient was discharged from [facility] on 03/18/2018, patient presented to be disorganized in the emergency room, said that he is "[place]", patient requires further evaluation and stabilization and adjustment of medications. patient was seen today with medical students, pt presented with some improvement with his psychosis, pt said he does not feel like he needs to save people and he does not feel like he is "[place]". at the same time as per staff pt is disorganized, psychotic. over night pt required to have Ativan because of a nxiety. As per nursing staff reported patient is compliant with medications, no aggression or agitation, but patient is oddly related, thought process is disorganized. Patient reported that he was on long acting meds, medical record was requested 03/25/18: med list was reviewed, pt was on abilify, risperdal, thorazine, but no decanoate was given, pt does not want to continue on abilify/risperdal, willing to continue on thorazine, as per RN pt was doing better on thorazine, less psychotic, more redirectable. 03/25/18: Collaterals were obtained from patient mother, please see social work professor notes for more detailed information. Patient was agitated, locked himself in the bathroom, was threatening to destroyed the house if he will be not brought back to the hospital, mother called 911. patient was seen by medical team for neck pain. Impression: schizophrenia Medication Change: Yes (thorazine increased, prolixin d/c) Medical Record Reviewed: Yes Mental Status Examination - Cognitive Function Orientation: Person, Place Memory: Impaired Attention: Poor Concentration: Poor Association: Loose Fund of Knowledge: WNL - Mood Mood: Neutral - Affect Affect: Constricted, Other (at times giggling inappropriately) - Formal Thought Process Formal Thought Process: Hallucinations, Delusions, Paranoia, Loosening of associations - Suicidal Ideation Suicidal Ideation: No - Homicidal Ideation Homicidal Ideation: No Goal/Treatment Plan - Goal/Treatment Plan Need for Continued Stay: Remain at risks for inpatient hospitalization, Severe depression anxiety, Discharge may exacerbated symptoms, Failed transitioning, Severe functional impairment Progress Toward Problem(s) and Goals/Treatment Plan: Milieu/structure/supportive therapy Medical consult appreciated, see medical team note for more detailed info SW consultation for discharge plan and social issues Depakote level 32 03/25/2018 Med management medications confirmed by pharmacy and resumed Patient reported to be on Prolixin decanoate,but it was not confirmed thorazine 100mg po bid and hs for psychosis Cogentin will be increased to 1 mg twice a day for possible EPS Klonopin 0.5 mg twice a day was added for anxiety and restlessness Family involvement Follow up on labs Will monitor closely Pt was educated about risk/benefits and alternatives of medications, coping strategies (safety plan, suicide prevention), relapse prevention, importance of follow up with psychiatrist and therapist, stay away from drugs/alcohol/smoking Estimated Date of D/C: 04/03/18
[2018-03-26] MEDS: Divalproex 250 mg ER (ONCE DAILY formulation) PO SCH (21:26)
--- NOTE | 2018-03-27 15:05 | PCM.PYCHPN ---
Psychiatric Progress Note - Psychiatric Progress Note Patient seen today, length of contact: 30 minutes Patient Chief Complaint: "I need to have an electrodes to check a balance of chemicals in my brain..." Problems Identified/Issues Discussed: Suicide/ homicide prevention, past psychiatric h/o, current psychiatric symptoms, medical problems, risk/benefits and alternatives of medications, medications compliance, coping strategies, substance abuse h/o, relapse prevention, importance of follow up with psychiatrist and therapist, discharge plan. Medical Problems: patient is relatively healthy was seen by medical team and the emergency room Diagnostic Results: 03/23/18 14:33 03/23/18 14:33 Lab Results 03/25/18 08:00: Valproic Acid 39 L 03/25/18 06:20: Urine Color Yellow, Urine Appearance Clear, Urine pH 6.5, Ur Specific [place] <= 1.005, Urine Protein Negative, Urine Glucose (UA) Negative, Urine Ketones Negative, Urine Blood Trace-intact H, Urine Nitrate Negative, Urine Bilirubin Negative, Urine Urobilinogen 0.2, Ur Leukocyte Esterase Negative, Urine RBC 1 - 3, Urine WBC 0 - 2, Ur Epithelial Cells 0 - 2, Urine Bacteria None 03/24/18 07:00: Hemoglobin A1c 5.2 03/24/18 07:00: RPR Nonreactive 03/24/18 07:00: TSH 3rd Generation 0.38 L 03/24/18 07:00: Fasting Glucose 96, Triglycerides 102, Cholesterol 145, LDL Cholesterol Direct 82, HDL Cholesterol 46 03/23/18 15:05: Urine Color Light yellow, Urine Appearance Clear, Urine pH 7.0, Ur Specific [place] <= 1.005, Urine Protein Negative, Urine Glucose (UA) Negative, Urine Ketones Negative, Urine Blood Moderate H, Urine Nitrate Negative, Urine Bilirubin Negative, Urine Urobilinogen 0.2, Ur Leukocyte E sterase Negative, Urine RBC 5 - 10, Urine WBC 1 - 3, Ur Epithelial Cells 1 - 3, Urine Bacteria Few 03/23/18 15:05: Urine Opiates Screen Negative, Urine Methadone Screen Negative, Ur Barbiturates Screen Negative, Ur Phencyclidine Scrn Negative, Ur Amphetamines Screen Negative, U Benzodiazepines Scrn Negative, U Oth Cocaine Metabols Negative, U Cannabinoids Screen Negative 03/23/18 14:33: Salicylates < 1 L, Acetaminophen < 10.0 L 03/23/18 14:33: Alcohol, Quantitative < 10 03/23/18 14:33: WBC 10.1, RBC 5.24, Hgb 16.1, Hct 47.5, MCV 90.6, MCH 30.7, MCHC 33.9, RDW 12.5, Plt Count 338, MPV 8.9, Gran % 64.5, Lymph % (Auto) 28.1, [place] % (Auto) 7.0 H, Eos % (Auto) 0.1 L, Baso % (Auto) 0.3, Gran # 6.50, Lymph # (Auto) 2.8, [place] # (Auto) 0.7 H, Eos # (Auto) 0.0, Baso # (Auto) 0.03 03/23/18 14:33: Sodium 136, Potassium 3.6, Chloride 94 L, Carbon Dioxide 32, Anion Gap 13, BUN 10, Creatinine 0.8, Est GFR ( Amer) > 60, Est GFR (Non- Af Amer) > 60, Random Glucose 83, Calcium 9.4, Total Bilirubin 0.2, AST 26, ALT 31, Alkaline Phosphatase 100, Total Protein 8.2, Albumin 4.8, Globulin 3.4, Albumin/Globulin Ratio 1.4 Vital Signs Temp Pulse Resp BP Pulse Ox 03/25/18 07:17 98.4 F 75 20 115/71 03/24/18 15:15 65 118/68 03/24/18 06:54 97.3 F L 63 20 112/53 L 03/24/18 03:51 18 03/23/18 17:45 98 F 75 19 125/75 75 L 03/23/18 14:22 98.6 F 89 18 132/88 99 DSM 5 Symptoms Update: 37 y/o male with history of schizophrenia, multiple admissions to the psychiatric inpatient unit and chronic noncompliance with the medications and follow up appointments, patient recently was discharged from [facility], patient was brought in by police for evaluation of bizarre and disorganized behavior, patient was discharged from [facility] on 03/18/2018, patient presented to be disorganized in the emergency room, said that he is "[place]", patient requires further evaluation and stabilization and adjustment of medications. patient was seen today next to the nursing station with medical students, pt presented with some improvement with his psychosis, but still disorganized, pt asked about electrodes which needs to be implanted into his eduardo to check chemicals in his brain. pt was keep asking how to check the chemicals in his brain, when this fiction and nonfiction writer prose explained to the pt that it is impossible, but if pt feels better it means that he has balances chemicals, pt was satisfied with the answer, then smiled and walked away. As per nursing staff reported patient is compliant with medications, no aggression or agitation, but patient is oddly related, thought process is disorganized. Patient reported that he was on long acting meds, medical record was requested 03/25/18: med list was reviewed, pt was on abilify, risperdal, thorazine, but no decanoate was given, pt does not want to continue on abilify/risperdal, willing to continue on thorazine, as per RN pt was doing better on thorazine, less psychotic, more redirectable. medical record was filled into the patient's chart. 03/25/18: Collaterals were obtained from patient mother, please see public health social worker notes for more detailed information. Patient was agitated, locked himself in the bathroom, was threatening to destroyed the house if he will be not brought back to the hospital, mother called 911. patient was seen by medical team for neck pain. Impression: schizophrenia Medication Change: Yes (thorazine increased 03/26/18) Medical Record Reviewed: Yes Consults ordered or reviewed: medical consult appreciated will follow-up on recommendations Mental Status Examination - Cognitive Function Orientation: Person, Place Memory: Impaired Attention: Poor Concentration: Poor Association: Loose Fund of Knowledge: WNL - Mood Mood: Neutral - Affect Affect: Constricted, Other (at times giggling inappropriately) - Formal Thought Process Formal Thought Process: Hallucinations, Delusions, Paranoia, Loosening of associations - Suicidal Ideation Suicidal Ideation: No - Homicidal Ideation Homicidal Ideation: No Goal/Treatment Plan - Goal/Treatment Plan Need for Continued Stay: Remain at risks for inpatient hospitalization, Severe depression anxiety, Discharge may exacerbated symptoms, Failed transitioning, Severe functional impairment Progress Toward Problem(s) and Goals/Treatment Plan: Milieu/structure/supportive therapy Medical consult appreciated, see medical team note for more detailed info SW consultation for discharge plan and social issues [facility] level 32 03/25/2018 Med management medications confirmed by pharmacy and resumed thorazine 100mg po bid and hs for psychosis Cogentin 1 mg twice a day for possible EPS Klonopin 0.5 mg twice a day was added for anxiety and restlessness Family involvement Follow up on labs Will monitor closely Pt was educated about risk/benefits and alternatives of medications, coping strategies (safety plan, suicide prevention), relapse prevention, importance of follow up with psychiatrist and therapist, stay away from drugs/alcohol/smoking Estimated Date of D/C: 04/03/18
[2018-03-27] MEDS: Divalproex 250 mg ER (ONCE DAILY formulation) PO SCH (21:08)
--- NOTE | 2018-03-28 14:13 | PCM.PYCHPN ---
Psychiatric Progress Note - Psychiatric Progress Note Patient seen today, length of contact: 30 minutes Patient Chief Complaint: "I need to have an electrodes to check a balance of chemicals in my brain, I also need to have MRI..." Problems Identified/Issues Discussed: Suicide/ homicide prevention, past psychiatric h/o, current psychiatric symptoms, medical problems, risk/benefits and alternatives of medications, medications compliance, coping strategies, substance abuse h/o, relapse prevention, importance of follow up with psychiatrist and therapist, discharge plan. Medical Problems: patient is relatively healthy was seen by medical team and the emergency room Diagnostic Results: 03/23/18 14:33 03/23/18 14:33 Lab Results 03/25/18 08:00: Valproic Acid 39 L 03/25/18 06:20: Urine Color Yellow, Urine Appearance Clear, Urine pH 6.5, Ur Specific [place] <= 1.005, Urine Protein Negative, Urine Glucose (UA) Negative, Urine Ketones Negative, Urine Blood Trace-intact H, Urine Nitrate Negative, Urine Bilirubin Negative, Urine Urobilinogen 0.2, Ur Leukocyte Esterase Negative, Urine RBC 1 - 3, Urine WBC 0 - 2, Ur Epithelial Cells 0 - 2, Urine Bacteria None 03/24/18 07:00: Hemoglobin A1c 5.2 03/24/18 07:00: RPR Nonreactive 03/24/18 07:00: TSH 3rd Generation 0.38 L 03/24/18 07:00: Fasting Glucose 96, Triglycerides 102, Cholesterol 145, LDL Cholesterol Direct 82, HDL Cholesterol 46 03/23/18 15:05: Urine Color Light yellow, Urine Appearance Clear, Urine pH 7.0, Ur Specific [place] <= 1.005, Urine Protein Negative, Urine Glucose (UA) Negative, Urine Ketones Negative, Urine Blood Moderate H, Urine Nitrate Negative, Urine Bilirubin Negative, Urine Urobilinogen 0.2, Ur Leukocyte Esterase Negative, Urine RBC 5 - 10, Urine WBC 1 - 3, Ur Epithelial Cells 1 - 3, Urine Bacteria Few 03/23/18 15:05: Urine Opiates Screen Negative, Urine Methadone Screen Negative, Ur Barbiturates Screen Negative, Ur Phencyclidine Scrn Negative, Ur Amphetamines Screen Negative, U Benzodiazepines Scrn Negative, U Oth Cocaine Metabols Negative, U Cannabinoids Screen Negative 03/23/18 14:33: Salicylates < 1 L, Acetaminophen < 10.0 L 03/23/18 14:33: Alcohol, Quantitative < 10 03/23/18 14:33: WBC 10.1, RBC 5.24, Hgb 16.1, Hct 47.5, MCV 90.6, MCH 30.7, MCHC 33.9, RDW 12.5, Plt Count 338, MPV 8.9, Gran % 64.5, Lymph % (Auto) 28.1, [place] % (Auto) 7.0 H, Eos % (Auto) 0.1 L, Baso % (Auto) 0.3, Gran # 6.50, Lymph # (Auto) 2.8, [place] # (Auto) 0.7 H, Eos # (Auto) 0.0, Baso # (Auto) 0.03 03/23/18 14:33: Sodium 136, Potassium 3.6, Chloride 94 L, Carbon Dioxide 32, Anion Gap 13, BUN 10, Creatinine 0.8, Est GFR ( Amer) > 60, Est GFR (Non- Af Amer) > 60, Random Glucose 83, Calcium 9.4, Total Bilirubin 0.2, AST 26, ALT 31, Alkaline Phosphatase 100, Total Protein 8.2, Albumin 4.8, Globulin 3.4, Albumin/Globulin Ratio 1.4 Vital Signs Temp Pulse Resp BP Pulse Ox 03/25/18 07:17 98.4 F 75 20 115/71 03/24/18 15:15 65 118/68 03/24/18 06:54 97.3 F L 63 20 112/53 L 03/24/18 03:51 18 03/23/18 17:45 98 F 75 19 125/75 75 L 03/23/18 14:22 98.6 F 89 18 132/88 99 DSM 5 Symptoms Update: 37 y/o male with history of schizophrenia, multiple admissions to the psychiatric inpatient unit and chronic noncompliance with the medications and follow up appointments, patient recently was discharged from [facility], patient was brought in by police for evaluation of bizarre and disorganized behavior, patient was discharged from [facility] on 03/18/2018, patient presented to be disorganized in the emergency room, said that he is "[place]", patient requires further evaluation and stabilization and adjustment of medications. patient was seen today next to the nursing station with medical students, pt was keep asking about MRI for his back, pt is ambulating, was helping staff to take off the Halloween decoration, was able to bend and no signs of any physical distress, discussed with , MRI is not recommended at this time. pt was educated abut it, pt seems to be dissatisfied. pt presented to be the same as yesterday, ased about electrodes which needs to be implanted into his eduardo to check chemicals in his brain. pt was keep asking how to check the chemicals in his brain. but overall pleasant. As per nursing staff reported patient is compliant with medications, no aggression or agitation, but patient is oddly related, thought process is disorganized. Patient reported that he was on long acting injectable form of medications, medical [place] [facility] [place]: med list was reviewed, pt was on abilify, risperdal, thorazine, but no decanoate was given, pt does not want to continue on abilify/risperdal, willing to continue on thorazine, as per RN pt was doing better on thorazine, less psychotic, more redirectable. medical record was filled into the patient's chart. 03/25/18: Collaterals were obtained from patient mother, please see manager social responsibility notes for more detailed information. Patient was agitated, locked himself in the bathroom, was threatening to destroyed the house if he will be not brought back to the hospital, mother called 911. Impression: schizophrenia Medication Change: Yes (thorazine hs was increased 150mg 03/28/18, klonopin decreased 0.25bid 03/28) Medical Record Reviewed: Yes Consults ordered or reviewed: medical consult appreciated will follow-up on recommendations Mental Status Examination - Cognitive Function Orientation: Person, Place Memory: Impaired Attention: Poor Concentration: Poor Association: Loose Fund of Knowledge: WNL - Mood Mood: Neutral - Affect Affect: Constricted, Other (at times giggling inappropriately) - Formal Thought Process Formal Thought Process: Hallucinations, Delusions, Paranoia, Loosening of associations - Suicidal Ideation Suicidal Ideation: No - Homicidal Ideation Homicidal Ideation: No Goal/Treatment Plan - Goal/Treatment Plan Need for Continued Stay: Remain at risks for inpatient hospitalization, Severe depression anxiety, Discharge may exacerbated symptoms, Failed transitioning, Severe functional impairment Progress Toward Problem(s) and Goals/Treatment Plan: Milieu/structure/supportive therapy Medical consult appreciated, see medical team note for more detailed info SW consultation for discharge plan and social issues Depakote level 32 03/25/2018 will check depakote level 03/29/18 Med management medications confirmed by pharmacy and resumed thorazine 100mg po bid and 150mg hs for psychosis Cogentin 1 mg twice a day for possible EPS Klonopin 0.25 mg twice a day was added for anxiety and restlessness Family involvement Follow up on labs Will monitor closely Pt was educated about risk/benefits and alternatives of medications, coping strategies (safety plan, suicide prevention), relapse prevention, importance of follow up with psychiatrist and therapist, stay away from drugs/alcohol/smoking Estimated Date of D/C: 04/03/18
[2018-03-28] MEDS: Divalproex 250 mg ER (ONCE DAILY formulation) PO SCH (21:46)
--- NOTE | 2018-03-29 09:33 | PCM.PYCHPN ---
Psychiatric Progress Note - Psychiatric Progress Note Patient seen today, length of contact: 30 minutes Problems Identified/Issues Discussed: I reviewed assessment and recent notes. I met with patient at bedside. He is oriented to month, location and year however doesn't seem to fully appreciate his circumstances. He is oddly related and preoccupied, guarded and paranoid. Accuses me of judging him though I just walked into the room. Patient indicates that he feels "a little depressed". Denies SI or AVH. He has been tolerating medications though complains of back pain and restless sleep. Thought process is tangential and unfocused at times. Affect is labile but generally polite during questioning. Staff notes indicate that patient has been delusional about electrodes needing to be implanted in his skull. He has been fairly calm and compliant without agitation/aggression/threats on the unit. Diagnostic Results: Schizophrenia Medication Change: Yes (thorazine hs was increased 150mg 03/28/18, klonopin decreased 0.25bid 03/28) Medical Record Reviewed: Yes Mental Status Examination - Cognitive Function Orientation: Person, Place Memory: Impaired Attention: Poor Concentration: Poor Association: Loose Fund of Knowledge: WNL - Mood Mood: Neutral - Affect Affect: Constricted, Other (at times giggling inappropriately) - Formal Thought Process Formal Thought Process: Hallucinations, Delusions, Paranoia, Loosening of associations - Suicidal Ideation Suicidal Ideation: No - Homicidal Ideation Homicidal Ideation: No Goal/Treatment Plan - Goal/Treatment Plan Need for Continued Stay: Remain at risks for inpatient hospitalization, Severe depression anxiety, Discharge may exacerbated symptoms, Failed transitioning, Severe functional impairment Progress Toward Problem(s) and Goals/Treatment Plan: * c/w current tx and plan * VPA level noted below, no other lab results thus far this weekend: 03/29/18 06:30 Valproic Acid 41 L * Vitals reviewed and noted below: Selected Entries 03/28/18 03/28/18 07:04 16:00 Temperature 97.9 F Pulse Rate 71 101 H Respiratory 20 Rate Blood Pressure 106/54 L 116/68 Estimated Date of D/C: 04/03/18
[2018-03-29] MEDS ORDERED: Oxycodone/Acetaminophen 5/325 mg Tab PO STA (20:33)
[2018-03-29] MEDS: Divalproex 250 mg ER (ONCE DAILY formulation) PO SCH (21:58)
--- NOTE | 2018-03-30 09:39 | PCM.PYCHPN ---
Psychiatric Progress Note - Psychiatric Progress Note Patient seen today, length of contact: 30 minutes Problems Identified/Issues Discussed: I reviewed recent notes and met with patient at bedside and hallway. He remains oriented to month, location and year however doesn't seem to fully appreciate his circumstances. Patient superficially denies any major psychiatric concerns and really just wants to remind me that percocet helped a lot for his back pain yesterday. Patient has been labile and edgy on the unit. Staff notes indicate that patient was agitated toward nurse on Saturday because he wanted vicodin. Staff have also noted that patient has been delusional about electrodes needing to be implanted in his skull however he doesn't bring up this concern during my visits this weekend. Nonetheless he remains oddly related, preoccupied and guarded. Thought process is tangential and unfocused at times. Affect is labile but still generally polite during questioning. Patient's behavior remains unpredictable. Diagnostic Results: Schizophrenia Medication Change: Yes ( Increased depakote ER to 1000 mg HS) Medical Record Reviewed: Yes Mental Status Examination - Cognitive Function Orientation: Person, Place Memory: Impaired Attention: Poor Concentration: Poor Association: Loose Fund of Knowledge: WNL - Mood Mood: Neutral - Affect Affect: Constricted, Other (at times giggling inappropriately) - Formal Thought Process Formal Thought Process: Hallucinations, Delusions, Paranoia, Loosening of ass ociations - Suicidal Ideation Suicidal Ideation: No - Homicidal Ideation Homicidal Ideation: No Goal/Treatment Plan - Goal/Treatment Plan Need for Continued Stay: Remain at risks for inpatient hospitalization, Severe depression anxiety, Discharge may exacerbated symptoms, Failed transitioning, Severe functional impairment Progress Toward Problem(s) and Goals/Treatment Plan: * c/w current tx and plan * VPA level noted below, will increased Depakote ER dose to 1000 mg po HS. * No other lab results thus far this weekend: 03/29/18 06:30 Valproic Acid 41 L * Vitals reviewed and noted below: Selected Entries 03/29/18 03/29/18 07:30 15:47 Temperature 97.1 F L Pulse Rate 82 92 H Respiratory 20 Rate Blood Pressure 108/68 116/58 L Estimated Date of D/C: 04/03/18
[2018-03-30] MEDS ORDERED: DiphenhydrAMINE 50 mg/ml Inj IM PRN (10:08)
[2018-03-30] MEDS: Divalproex 500 mg ER (ONCE DAILY formulation) PO SCH (21:38)
--- NOTE | 2018-03-31 13:24 | PCM.PYCHPN ---
Psychiatric Progress Note - Psychiatric Progress Note Patient seen today, length of contact: 30 minutes Patient Chief Complaint: "I need to have an electrodes to check a balance of chemicals in my brain, I also need to have MRI..." Problems Identified/Issues Discussed: Suicide/ homicide prevention, past psychiatric h/o, current psychiatric symptoms, medical problems, risk/benefits and alternatives of medications, medications compliance, coping strategies, substance abuse h/o, relapse prevention, importance of follow up with psychiatrist and therapist, discharge plan. Medical Problems: patient is relatively healthy was seen by medical team and the emergency room Diagnostic Results: 03/23/18 14:33 03/23/18 14:33 Lab Results 03/25/18 08:00: Valproic Acid 39 L 03/25/18 06:20: Urine Color Yellow, Urine Appearance Clear, Urine pH 6.5, Ur Specific [place] <= 1.005, Urine Protein Negative, Urine Glucose (UA) Negative, Urine Ketones Negative, Urine Blood Trace-intact H, Urine Nitrate Negative, Urine Bilirubin Negative, Urine Urobilinogen 0.2, Ur Leukocyte Esterase Negative, Urine RBC 1 - 3, Urine WBC 0 - 2, Ur Epithelial Cells 0 - 2, Urine Bacteria None 03/24/18 07:00: Hemoglobin A1c 5.2 03/24/18 07:00: RPR Nonreactive 03/24/18 07:00: TSH 3rd Generation 0.38 L 03/24/18 07:00: Fasting Glucose 96, Triglycerides 102, Cholesterol 145, LDL Cholesterol Direct 82, HDL Cholesterol 46 03/23/18 15:05: Urine Color Light yellow, Urine Appearance Clear, Urine pH 7.0, Ur Specific [place] <= 1.005, Urine Protein Negative, Urine Glucose (UA) Negative, Urine Ketones Negative, Urine Blood Moderate H, Urine Nitrate Negative, Urine Bilirubin Negative, Urine Urobilinogen 0.2, Ur Leukocyte Esterase Negative, Urine RBC 5 - 10, Urine WBC 1 - 3, Ur Epithelial Cells 1 - 3, Urine Bacteria Few 03/23/18 15:05: Urine Opiates Screen Negative, Urine Methadone Screen Negative, Ur Barbiturates Screen Negative, Ur Phencyclidine Scrn Negative, Ur Amphetamines Screen Negative, U Benzodiazepines Scrn Negative, U Oth Cocaine Metabols Negative, U Cannabinoids Screen Negative 03/23/18 14:33: Salicylates < 1 L, Acetaminophen < 10.0 L 03/23/18 14:33: Alcohol, Quantitative < 10 03/23/18 14:33: WBC 10.1, RBC 5.24, Hgb 16.1, Hct 47.5, MCV 90.6, MCH 30.7, MCHC 33.9, RDW 12.5, Plt Count 338, MPV 8.9, Gran % 64.5, Lymph % (Auto) 28.1, [place] % (Auto) 7.0 H, Eos % (Auto) 0.1 L, Baso % (Auto) 0.3, Gran # 6.50, Lymph # (Auto) 2.8, [place] # (Auto) 0.7 H, Eos # (Auto) 0.0, Baso # (Auto) 0.03 03/23/18 14:33: Sodium 136, Potassium 3.6, Chloride 94 L, Carbon Dioxide 32, Anion Gap 13, BUN 10, Creatinine 0.8, Est GFR ( Amer) > 60, Est GFR (Non- Af Amer) > 60, Random Glucose 83, Calcium 9.4, Total Bilirubin 0.2, AST 26, ALT 31, Alkaline Phosphatase 100, Total Protein 8.2, Albumin 4.8, Globulin 3.4, Albumin/Globulin Ratio 1.4 Vital Signs Temp Pulse Resp BP Pulse Ox 03/25/18 07:17 98.4 F 75 20 115/71 03/24/18 15:15 65 118/68 03/24/18 06:54 97.3 F L 63 20 112/53 L 03/24/18 03:51 18 03/23/18 17:45 98 F 75 19 125/75 75 L 03/23/18 14:22 98.6 F 89 18 132/88 99 DSM 5 Symptoms Update: 37 y/o male with history of schizophrenia, multiple admissions to the psychiatric inpatient unit and chronic noncompliance with the medications and follow up appointments, patient recently was discharged from [facility], patient was brought in by police for evaluation of bizarre and disorganized behavior, patient was discharged from [facility] on 03/18/2018, patient presented to be disorganized in the emergency room, said that he is "[place]", patient requires further evaluation and stabilization and adjustment of medications. patient was seen today next to the nursing station with medical students, as well as resident. pt presented to be irritable, agitated, paranoid. pt said that over the weekend one dose of percocet was given to him, pt had assumption that this senior medical writer ordered it to him and now she refused to do so. pt is very preoccupied with his back pain, and insisted to have an MRI, medical consult appreciated, did not recommend any MRI or any pain killers at this point but flexeril, pt is ambulating with no difficulties, was helping staff to take off the Halloween decoration, was able to bend and no signs of any physical distress. pt became agitated, hit the glass window next to the nursing station, was threatening this senior medical writer, cursing, staff intervene immediately pt got PRN of Geodon and Ativan Stat IM. pt submitted 48hr notice, at this point pt pose danger to self and others, will initiate [place] [facility] over the weekend patient has been labile and edgy on the unit. Staff notes indicate that patient was agitated toward nurse on Saturday because he wanted vicodin. Staff have also noted that patient has been delusional about electrodes needing to be implanted in his skull. Patient remains oddly related, preoccupied and guarded. Thought process is tangential and unfocused at times. Affect is labile impulses and behavior remains unpredictable. As per nursing staff reported patient is compliant with medications, no aggression or agitation, but patient is oddly related, thought process is disorganized. Patient reported that he was on long acting injectable form of medications, medical record was [place] [facility] [place]: med list was reviewed, pt was on abilify, risperdal, thorazine, but no decanoate was given, pt does not want to continue on abilify/risperdal, willing to continue on thorazine, as per RN pt was doing better on thorazine, less psychot ic, more redirectable. medical record was filled into the patient's chart. 03/25/18: Collaterals were obtained from patient mother, please see psychiatric social worker supervisor notes for more detailed information. Patient was agitated, locked himself in the bathroom, was threatening to destroyed the house if he will be not brought back to the hospital, mother called 911. Impression: schizophrenia Diagnostic Results: Schizophrenia Medication Change: Yes (thorazine increased, depakote increased) Medical Record Reviewed: Yes Consults ordered or reviewed: medical consult appreciated No MRI recommended Mental Status Examination - Cognitive Function Orientation: Person, Place Memory: Impaired Attention: Poor Concentration: Poor Association: Loose Fund of Knowledge: WNL - Mood Mood: Neutral - Affect Affect: Constricted, Other (at times giggling inappropriately) - Speech Speech: Loud, Pressured - Formal Thought Process Formal Thought Process: Hallucinations, Delusions, Paranoia, Loosening of associations - Suicidal Ideation Suicidal Ideation: No - Homicidal Ideation Homicidal Ideation: No Goal/Treatment Plan - Goal/Treatment Plan Need for Continued Stay: Remain at risks for inpatient hospitalization, Severe depression anxiety, Discharge may exacerbated symptoms, Failed transitioning, Severe functional impairment Progress Toward Problem(s) and Goals/Treatment Plan: Milieu/structure/supportive therapy Medical consult appreciated, see medical team note for more detailed info SW consultation for discharge plan and social issues Depakote level 32 03/25/2018 depakote level 41 03/29/18 Med management medications confirmed by pharmacy and resumed thorazine 100mg po bid and 200mg hs for psychosis Cogentin 1 mg twice a day for possible EPS Klonopin 1 mg twice a day was added for anxiety and restlessness Family involvement Follow up on labs Will monitor closely Pt was educated about risk/benefits and alternatives of medications, coping strategies (safety plan, suicide prevention), relapse prevention, importance of follow up with psychiatrist and therapist, stay away from drugs/alcohol/smoking pt submitted 48hr notice, will [place] [facility] [place] Estimated Date of D/C: 04/03/18
[2018-03-31] MEDS: Divalproex 500 mg ER (ONCE DAILY formulation) PO SCH (21:00)
[2018-04-01 07:12] VITALS: BP 124/73; PULSE 98; TEMP 98.1
--- NOTE | 2018-04-01 14:31 | PCM.PYCHDC ---
Mental Status Examination - Mental Status Examination Orientation: Person, Place, Situation, Time Memory: Intact Mood: Neutral (at times labile) Affect: Constricted Speech: Appropriate (at times loud) Attention: Poor (but with some improvement) Concentration: Poor (but with some improvement) Association: Loose (baseline) Fund of Knowledge: Poor Formal Thought Process: Delusions (somewhat better), Paranoia (chronic), Loosening of associations, Circumstantial Description of patient's judgement and insight: remains to be limited but improving Psychotic Thoughts and Behaviors: thought process circumstantial and tangential, but patient does not believe that he is any longer Suicidal Ideation: No Current Homicidal Ideation?: No Plan: patient adamantly denied thoughts of harming himself or others at the time of discharge. Discharge Summary - Discharge Note Reason for Hospitalization: patient was admitted to the psychiatric inpatient unit for evaluation and stabilization of psychotic symptoms, patient acting bizarre in the community, try to break in into locked cars, police brought patient for evaluation and stabilization. Psychiatric History (includes Medical, Family, Personal Hx): see HPI Laboratory Data: 03/23/18 14:33 03/23/18 14:33 Lab Results 03/29/18 06:30: Valproic Acid 41 L 03/25/18 08:00: Valproic Acid 39 L 03/25/18 06:20: Urine Color Yellow, Urine Appearance Clear, Urine pH 6.5, Ur Specific Itmann <= 1.005, Urine Protein Negative, Urine Glucose (UA) Negative, Urine Ketones Negative, Urine Blood Trace-intact H, Urine Nitrate Negative, Urine Bilirubin Negative, Urine Urobilinogen 0.2, Ur Leukocyte Esterase Negative, Urine RBC 1 - 3, Urine WBC 0 - 2, Ur Epithelial Cells 0 - 2, Urine Bacteria None 03/24/18 07:00: Hemoglobin A1c 5.2 03/24/18 07:00: RPR Nonreactive 03/24/18 07:00: TSH 3rd Generation 0.38 L 03/24/18 07:00: Fasting Glucose 96, Triglycerides 102, Cholesterol 145, LDL Cholesterol Direct 82, HDL Cholesterol 46 03/23/18 15:05: Urine Color Light yellow, Urine Appearance Clear, Urine pH 7.0, Ur Specific Itmann <= 1.005, Urine Protein Negative, Urine Glucose (UA) Negative, Urine Ketones Negative, Urine Blood Moderate H, Urine Nitrate Negative, Urine Bilirubin Negative, Urine Urobilinogen 0.2, Ur Leukocyte Esterase Negative, Urine RBC 5 - 10, Urine WBC 1 - 3, Ur Epithelial Cells 1 - 3, Urine Bacteria Few 03/23/18 15:05: Urine Opiates Screen Negative, Urine Methadone Screen Negative, Ur Barbiturates Screen Negative, Ur Phencyclidine Scrn Negative, Ur Amphetamines Screen Negative, U Benzodiazepines Scrn Negative, U Oth Cocaine Metabols Negative, U Cannabinoids Screen Negative 03/23/18 14:33: Salicylates < 1 L, Acetaminophen < 10.0 L 03/23/18 14:33: Alcohol, Quantitative < 10 03/23/18 14:33: WBC 10.1, RBC 5.24, Hgb 16.1, Hct 47.5, MCV 90.6, MCH 30.7, MCHC 33.9, RDW 12.5, Plt Count 338, MPV 8.9, Gran % 64.5, Lymph % (Auto) 28.1, Pershing % (Auto) 7.0 H, Eos % (Auto) 0.1 L, Baso % (Auto) 0.3, Gran # 6.50, Lymph # (Auto) 2.8, Pershing # (Auto) 0.7 H, Eos # (Auto) 0.0, Baso # (Auto) 0.03 03/23/18 14:33: Sodium 136, Potassium 3.6, Chloride 94 L, Carbon Dioxide 32, Anion Gap 13, BUN 10, Creatinine 0.8, Est GFR ( Amer) > 60, Est GFR (Non- Af Amer) > 60, Random Glucose 83, Calcium 9.4, Total Bilirubin 0.2, AST 26, ALT 31, Alkaline Phosphatase 100, Total Protein 8.2, Albumin 4.8, Globulin 3.4, Albumin/Globulin Ratio 1.4 Vital Signs Temp Pulse Resp BP Pulse Ox 03/31/18 16:00 98 H 124/73 03/31/18 07:14 98.1 F 81 20 115/71 03/30/18 16:19 107 H 120/70 03/30/18 12:34 80 120/70 03/30/18 07:17 97.9 F 79 20 116/69 03/29/18 15:47 92 H 116/58 L 03/29/18 07:30 97.1 F L 82 20 108/68 03/28/18 16:00 101 H 116/68 03/28/18 07:04 97.9 F 71 20 106/54 L 03/27/18 16:00 101 H 122/87 03/27/18 07:20 97.6 F 69 20 101/65 03/26/18 16:00 104 H 114/59 L 03/26/18 07:19 97.6 F 93 H 20 100/65 03/25/18 16:00 78 108/67 03/25/18 07:17 98.4 F 75 20 115/71 03/24/18 15:15 65 118/68 03/24/18 06:54 97.3 F L 63 20 112/53 L 03/24/18 03:51 18 03/23/18 17:45 98 F 75 19 125/75 75 L 03/23/18 14:22 98.6 F 89 18 132/88 99 Consultations:: List each consultation separately and include: 1. Reason for request. 2. Findings. 3. Follow-up Consultations: medical consult appreciated No MRI recommended please see medical team notes for more detailed information Summary of Hospital Course include:: 1. Description of specific treatment plan utilized for patients during their course of treatmen. 2. Summarize the time- course for resolution of acute symptoms and/or regressed behaviors. 3. Describe issues identified and worked on during hospitalization. 4. Describe medication utilized. 5. Describe medical problems identified and treated. 6. Reassessment of suicide risk Summary of Hospital Course: 37 y/o male with history of schizophrenia, multiple admissions to the psychiatric inpatient unit and chronic noncompliance with the medications and follow up appointments, patient recently was discharged from [facility], patient was brought in by police for evaluation of bizarre and disorganized behavior, patient was discharged from [facility] on 03/18/2018, patient presented to be disorganized in the emergency room, said that he is "[place]", patient required further evaluation and stabilization and adjustment of medications. at the time of admission patient presented to be disorganized, psychotic, religiously preoccupied, please see admission note for more detailed information. 03/25/18: Collaterals were obtained from patient mother, please see clinical social work aide notes for more detailed information. Patient was agitated, locked himself in the bathroom, was threatening to destroyed the house if he will be not brought back to the hospital, mother called 911. Medication list was confirmed by patient pharmacy phone number [phone]: Depakote 250 mg filled in 03/18/2018 Benztropine 0.5 mg filled in 03/18/2018 Fluphenazine 5 mg filled in March 18 Lorazepam 1 mg filled in March 18 Patient reported that he was on long acting injectable form of medications, medical [place] [facility] [place]: med list was reviewed, pt was on abilify, risperdal, thorazine, but no decanoate was given, pt does not want to continue on abilify/risperdal, willing to continue on thorazine, as per RN pt was doing better on thorazine, less psychotic, more redirectable. medical record was filled into the patient's chart. patient was relatively stabilized on the following medications: Depakote level 32 03/25/2018 depakote level 41 03/29/18 thorazine 200mg po bid and 200mg hs for psychosis Cogentin 1 mg twice a day for possible EPS Klonopin 1 mg twice a day was added for anxiety and restlessness patient tolerates medications well, no side effects observed or reported, aims 0, no EPS over the course of this hospitalization patient presented to be disorganized, was fixated on MRI for his back. over the weekend 03/30-03/31 patient has been labile and edgy on the unit. Staff notes indicate that patient was agitated toward nurse on Saturday because he wanted vicodin. Staff have also noted that patient has been delusional about electrodes needing to be implanted in his skull. 03/31/18 pt presented to be irritable, agitated, paranoid. pt said that over the weekend one dose of percocet was given to him, pt had assumption that this creative writer ordered it to him and now she refused to do so. pt is very preoccupied with his back pain, and insisted to have an MRI, medical consult appreciated, did not recommend any MRI or any pain killers at this point but efrem coleman, pt is ambulating with no difficulties, was helping staff to take off the Halloween decoration, was able to bend and no signs of any physical distress. pt became agitated, hit the glass window next to the nursing station, was threatening this creative writer, cursing, staff intervene immediately pt got PRN of Geodon and Ativan Stat IM. pt submitted 48hr notice, at this point pt pose danger to self and others, screening by [facility] [place]. patient was screened by [facility], was found to be not committable, this creative writer had no other options other than to let patient go against medical advise. patient expressed his interest to continue all of the medications, this creative writer will provide prescription for 1 week's supply and 3 refills only, patient needs to be followed up Intensive Day Treatment Program at [facility]. At the time of the discharge pt denied been depressed, denied thoughts of harming self or others, denied psychotic symptoms, but patient presented to be disorganized, pt was considered to be not in any imminent danger to self or others, pt was referred to Intensive Day Treatment Program at [facility]. pt was advised to be follow up there, time and address provided to the pt, it is patient responsibility to follow up with outpatient clinic, PMD as well as specialists. In case pt will need to obtain results of studies pending at discharge pt was provided with contact information of Psychiatric Inpatient unit [phone] as well as Medical Record Department [phone]. Naltrexone treatment not indicated at this time. Counseling about smoking cessation provided smoking cessation treatment program information was provided by the pt was provided with prescriptions for all of medications (please see medication reconciliation form) Pt was educated about safety plan in case of worsening of symptoms or in case of suicidal or homicidal ideation call 911 or go to the nearest ER, also was educated to take meds as prescribed and stay away from drugs, pt verbalized understanding. 03/23/18 14:33 03/23/18 14:33 Lab Results 03/24/18 07:00: Hemoglobin A1c 5.2 03/24/18 07:00: TSH 3rd Generation 0.38 L 03/24/18 07:00: Fasting Glucose 96, Triglycerides 102, Cholesterol 145, LDL Cholesterol Direct 82, HDL Cholesterol 46 03/23/18 15:05: Urine Color Light yellow, Urine Appearance Clear, Urine pH 7.0, Ur Specific Itmann <= 1.005, Urine Protein Negative, Urine Glucose (UA) Negative, Urine Ketones Negative, Urine Blood Moderate H, Urine Nitrate Negative, Urine Bilirubin Negative, Urine Urobilinogen 0.2, Ur Leukocyte Esterase Negative, Urine RBC 5 - 10, Urine WBC 1 - 3, Ur Epithelial Cells 1 - 3, Urine Bacteria Few 03/23/18 15:05: Urine Opiates Screen Negative, Urine Methadone Screen Negative, Ur Barbiturates Screen Negative, Ur Phencyclidine Scrn Negative, Ur Amphetamines Screen Negative, U Benzodiazepines Scrn Negative, U Oth Cocaine Metabols Negative, U Cannabinoids Screen Negative 03/23/18 14:33: Salicylates < 1 L, Acetaminophen < 10.0 L 03/23/18 14:33: Alcohol, Quantitative < 10 03/23/18 14:33: WBC 10.1, RBC 5.24, Hgb 16.1, Hct 47.5, MCV 90.6, MCH 30.7, MCHC 33.9, RDW 12.5, Plt Count 338, MPV 8.9, Gran % 64.5, Lymph % (Auto) 28.1, Pershing % (Auto) 7.0 H, Eos % (Auto) 0.1 L, Baso % (Auto) 0.3, Gran # 6.50, Lymph # (Auto) 2.8, Pershing # (Auto) 0.7 H, Eos # (Auto) 0.0, Baso # (Auto) 0.03 03/23/18 14:33: Sodium 136, Potassium 3.6, Chloride 94 L, Carbon Dioxide 32, Anion Gap 13, BUN 10, Creatinine 0.8, Est GFR ( Amer) > 60, Est GFR (Non- Af Amer) > 60, Random Glucose 83, Calcium 9.4, Total Bilirubin 0.2, AST 26, ALT 31, Alkaline Phosphatase 100, Total Protein 8.2, Albumin 4.8, Globulin 3.4, Albumin/Globulin Ratio 1.4 Vital Signs Temp Pulse Resp BP Pulse Ox 03/24/18 15:15 65 118/68 03/24/18 06:54 97.3 F L 63 20 112/53 L 03/24/18 03:51 18 03/23/18 17:45 98 F 75 19 125/75 75 L 03/23/18 14:22 98.6 F 89 18 132/88 99 - Diagnosis (1) Schizophrenia Status: Chronic Priority: High - Final Diagnosis (DSM 5) Condition upon Discharge: STABLE Disposition: AGAINST MEDICAL ADVICE Follow-up Treatment Plan: At the time of the discharge pt denied been depressed, denied thoughts of harming self or others, denied psychotic symptoms, but patient presented to be disorganized, pt was considered to be not in any imminent danger to self or others, pt was referred to Intensive Day Treatment Program at [facility]. pt was advised to be follow up there, time and address provided to the pt, it is patient responsibility to follow up with outpatient clinic, PMD as well as specialists. In case pt will need to obtain results of studies pending at discharge pt was provided with contact information of Psychiatric Inpatient unit [phone] as well as Medical Record Department [phone]. Naltrexone treatment not indicated at this time. Counseling about smoking and alcohol cessation provided AA meetings as well as smoking cessation treatment program information was provided by the pt was provided with prescriptions for all of medications (please see medication reconciliation form) Pt was educated about safety plan in case of worsening of symptoms or in case of suicidal or homicidal ideation call 911 or go to the nearest ER, also was educated to take meds as prescribed and stay away from drugs, pt verbalized understanding. Prescriptions/Medication Reconciliation: Benztropine [Cogentin] 1 mg PO AMHS #14 tab chlorproMAZINE [chlorPROMAZINE HCL] 200 mg PO TID #21 tab clonazePAM [Klonopin] 1 mg PO BID #14 tab Cyclobenzaprine [Flexeril] 5 mg PO TID PRN #21 tab PRN Reason: Muscle Spasm Divalproex [Depakote ER(ONCE DAILY)] 1,000 mg PO HS #14 ter Ibuprofen [Motrin Tab] 400 mg PO Q6H PRN #30 tab PRN Reason: Pain, Severe (8-10) Nicotine 7 mg/24 hr [Nicoderm CQ] 1 patch TD DAILY #7 patch Zaleplon [Sonata] 10 mg PO HS PRN #7 cap PRN Reason: Insomnia - Smoking Cessation Smoking Cessation Medication prescribed: Yes - Antipsychotic Medications Pt discharged on 2 or more routine antipsychotic medications: No
== END 2018-04-01 13:20 | disposition left against medical advice (07) | DRG 885 ==
LOC: ED 14:22 → ERH 16:28 → PSYC 18:11
PROVIDERS: ADMIT Psychiatry & Neurology Psychiatry; ATTEND Psychiatry & Neurology Psychiatry
DX: F20.9 Schizophrenia, unspecified (principal); F32.89 Other specified depressive episodes; F17.200 Nicotine dependence, unspecified, uncomplicated; F41.9 Anxiety disorder, unspecified; G89.29 Other chronic pain; S69.90XA Unspecified injury of unspecified wrist, hand and finger(s), initial encounter; W22.09XA Striking against other stationary object, initial encounter; Z91.14 Patient's other noncompliance with medication regimen; Z88.8 Allergy status to other drugs, medicaments and biological substances

== ENCOUNTER 2018-04-09 22:41 | Emergency (ER) | payer MEDICARE, OTHER ==
[2018-04-09 22:41] VITALS: BMI 27.6
[2018-04-09 22:52] VITALS: RESP 18
--- NOTE | 2018-04-09 22:52 | ED PDOC ---
Arrival/HPI - General Historian: Patient - History of Present Illness Narrative History of Present Illness (Text): 04/09/18 22:52 Nuno Klein is a 37 year old male, whose past medical history includes schizophrenia, who presents to the Emergency department brought in by EMS and [facility] for bizarre behavior tonight. Patient states he was singing outside "giving his own concert." Patient also reports he was "looking for the love of my life." EMS was notified by the patient's mother due to his bizarre behavior. Patient reports he has been compliant with his medications. Patient denies any suicidal ideation, homicidal ideation, or any somatic complaints. Symptom Onset: Gradual Symptom Course: Unchanged Activities at Onset: Light Context: Street Past Medical History - Provider Review Nursing Documentation Reviewed: Yes - Infectious Disease Hx of Infectious Diseases: None - Cardiac Hx Cardiac Disorders: No - Pulmonary Hx Respiratory Disorders: No - Neurological Hx Neurological Disorder: No - HEENT Hx HEENT Disorder: No - Renal Hx Renal Disorder: No - Endocrine/Metabolic Hx Endocrine Disorders: No - Hematological/Oncological Hx Blood Disorders: No - Integumentary Hx Dermatological Disorder: No - Musculoskeletal/Rheumatological Hx Musculoskeletal Disorders: Yes - Gastrointestinal Hx Gastrointestinal Disorders: No - Genitourinary/Gynecological Hx Genitourinary Disorders: No - Psychiatric Hx Psychophysiologic Disorder: Yes Hx Schizophrenia: Yes Hx Substance Use: Yes - Surgical History Hx Inguinal Hernia Repair: Yes - Anesthesia Hx Anesthesia: Yes - Suicidal Assessment Feels Threatened In Home Enviroment: Yes Family/Social History - Physician Review Nursing Documentation Reviewed: Yes Family/Social History: Unknown Family HX Smoking Status: Heavy Smoker > 10 Cigarettes Daily Hx Alcohol Use: No Hx Substance Use: Yes Substance used: heroin, cocaine Hx Substance Use Treatment: No Allergies/Home Meds Allergies/Adverse Reactions: Allergies haloperidol [From Haldol] Adverse Reaction (Verified 03/23/18 22:24) PAIN cramping Home Medications: Home Meds Medication Instructions Recorded Confirmed Benztropine [Cogentin] 2 mg PO HS 04/09/18 04/09/18 Divalproex [Depakote ER(ONCE 250 mg PO HS 04/09/18 04/09/18 DAILY)] LORazepam [Ativan] 1 mg PO HS 04/09/18 04/09/18 fluPHENAZine [Fluphenazine HCl] 10 mg PO HS 04/09/18 04/09/18 Review of Systems - Physician Review All systems were reviewed & negative as marked: Yes - Review of Systems Constitutional: Normal. absent: Fevers Eyes: Normal ENT: Normal Respiratory: Normal. absent: SOB, Cough Cardiovascular: Normal. absent: Chest Pain Gastrointestinal: Normal. absent: Abdominal Pain, Diarrhea, Nausea, Vomiting Genitourinary Male: Normal. absent: Dysuria, Frequency, Hematuria, Urinary Output Changes Musculoskeletal: Normal. absent: Back Pain, Neck Pain Skin: Normal. absent: Rash Neurological: Normal. absent: Headache, Dizziness Endocrine: Normal Hemo/Lymphatic: Normal Psychiatric: Other (+bizarre behavior) Physical Exam Vital Signs Reviewed: Yes Temperature: Afebrile Blood Pressure: Normal Pulse: Regular Respiratory Rate: Normal Appearance: Positive for: Well-Appearing, Non-Toxic, Comfortable Pain Distress: None Mental Status: Positive for: Alert and Oriented X 3 - Systems Exam Head: Present: Atraumatic, Normocephalic Pupils: Present: PERRL Extroacular Muscles: Present: EOMI Conjunctiva: Present: Normal Mouth: Present: Moist Mucous Membranes Neck: Present: Normal Range of Motion Respiratory/Chest: Present: Clear to Auscultation, Good Air Exchange. No: Respiratory Distress, Accessory Muscle Use Cardiovascular: Present: Regular Rate and Rhythm, Normal S1, S2. No: Murmurs Abdomen: No: Tenderness, Distention, Peritoneal Signs Back: Present: Normal Inspection Upper Extremity: Present: Normal Inspection. No: Cyanosis, Edema Lower Extremity: Present: Normal Inspection. No: Edema Neurological: Present: GCS=15, CN II-XII Intact, Speech Normal Skin: Present: Warm, Dry, Normal Color. No: Rashes Psychiatric: Present: Alert, Oriented x 3, Normal Insight, Normal Concentration Medical Decision Making ED Course and Treatment: 04/09/18 22:52 Impression: 37 year old male brought in for bizarre behavior tonight. Plan: -- EKG -- Chest X-ray -- Labs, alcohol level -- Urine drug screen -- Reassess and disposition Prior Visits: Notes and results from previous visits were reviewed. Progress Notes: Reviewed EKG, NSR at [address]-segment elevations or depressions, no T-wave inversions, normal intervals. 04/10/18 00:35 Chest X-ray reviewed, shows no acute processes. 04/10/18 01:30 Pt medically cleared for PES evaluation. 04/10/18 02:30 Pt seen and evaluated by PES screener Jazmine, who discussed case with psychiatrist data conversion analyst. Pt is psychiatrically cleared for discharge home with outpatient f/u with [facility]. Pt agreeable with plan. - EKG Interpretation Interpreted by ED Physician: Yes Type: 12 lead EKG - Scribe Statement The provider has reviewed the documentation as recorded by the Rohan Torres Provider Scribe Attestation: All medical record entries made by the Scribe were at my direction and personally dictated by me. I have reviewed the chart and agree that the record accurately reflects my personal performance of the history, physical exam, medical decision making, and the department course for this patient. I have also personally directed, reviewed, and agree with the discharge instructions and disposition. Disposition/Present on Arrival - Present on Arrival Any Indicators Present on Arrival: No History of DVT/PE: No History of Uncontrolled Diabetes: No Urinary Catheter: No History of Decub. Ulcer: No History Surgical Site Infection Following: None - Disposition Have Diagnosis and Disposition been Completed?: Yes Diagnosis: Schizophrenia Disposition: HOME/ ROUTINE Disposition Time: 02:29 Patient Plan: Discharge Patient Problems: Current Active Problems Problem Status Onset Schizophrenia Chronic Condition: GOOD Discharge Instructions (ExitCare): Schizophrenia (DC) Additional Instructions: Follow up outpatient as instructed
[2018-04-09 23:55] LABS: HEMOGLOBIN 15.9 g/dL (14.0-18.0); MEAN CELL VOLUME 89.9 fl (80.0-105.0); MEAN CORPUSCULAR HEMOGLOBIN 30.9 pg (25.0-35.0); MEAN CORPUSCULAR HGB CONC 34.4 g/dl (31.0-37.0); MEAN PLATELET VOLUME 8.8 fl (7.0-11.0); RBC 5.14 10^6/uL (3.5-6.1); RED CELL DISTRIBUTION WIDTH 12.4 % (11.5-14.5); WHITE BLOOD COUNT 9.2 10^3/uL (4.5-11.0)
[2018-04-10 01:09] LABS: ALB/GLOB RATIO 1.4 (1.1-1.8); ALT/SGPT 41 U/L (7-56); AST/SGOT 35 U/L (17-59); BLOOD UREA NITROGEN 9 mg/dL (7-21); CALCIUM 9.6 mg/dL (8.4-10.5); GFR NON-AFRICAN AMERICAN > 60
[2018-04-10 01:19] LABS: BARBITURATES, UR NEGATIVE (NEGATIVE); BENZODIAZEPINES, UR NEGATIVE (NEGATIVE); OPIATES, UR NEGATIVE (NEGATIVE); PHENCYCLIDINE, UR NEGATIVE (NEGATIVE)
[2018-04-10 03:13] VITALS: BP 141/72; PULSE 86; TEMP 98; O2SAT 100
--- NOTE | 2018-04-10 08:57 | RAD ---
Date of service: 04/09/2018 HISTORY: medical clearance COMPARISON: Portable chest 03/15/2018. FINDINGS: LUNGS: No active pulmonary disease. PLEURA: No significant pleural effusion identified, no pneumothorax apparent. CARDIOVASCULAR: No aortic atherosclerotic calcification present. Normal cardiac size. No pulmonary vascular congestion. OSSEOUS STRUCTURES: No significant abnormalities. VISUALIZED UPPER ABDOMEN: Normal. OTHER FINDINGS: None. IMPRESSION: No interval acute cardiopulmonary disease appreciated.
--- NOTE | 2018-04-10 13:37 | CARD ---
APPROVED REPORT Date of service: 04/09/2018 EKG Measurement Heart [id number] <Conclusion> Normal sinus rhythm Normal ECG
== END 2018-04-10 02:45 | disposition home or self-care (01) ==
LOC: ED 22:41
DX: F20.9 Schizophrenia, unspecified (principal)
CPT/HCPCS: 71045; 80053; 85027; 90791; 93005; 99284; G0480

== ENCOUNTER 2018-04-11 20:36 | Emergency (ER) | payer MEDICARE, OTHER ==
[2018-04-11 20:41] VITALS: BMI 26.4
--- NOTE | 2018-04-11 21:10 | ED PDOC ---
Arrival/HPI - General Chief Complaint: Psychiatric Evaluation Time Seen by Provider: 04/11/18 20:40 - History of Present Illness Narrative History of Present Illness (Text): 04/11/18 21:06 37 y/o M w/ h/o psychiatric illness presenting to the Emergency Room after being brought by police for substance abuse. According to the patient, the patient was at home and had been experiencing a disagreement with his romantic partner, but was acting strangely per family. His mother called the police who brought him to the Emergency Room. The patient is noted to be very reluctant to provide any medical history and is tearful upon interrogation. A more complete HPI was unable to be obtained due to the patient's clinical condition Time/Duration: Prior to Arrival Symptom Onset: Sudden Activities at Onset: Emotional Upset Context: Home Past Medical History - Provider Review Nursing Documentation Reviewed: Yes - Travel History Have you recently traveled outside [place] w/in the past 3 mons?: No - Infectious Disease Hx of Infectious Diseases: None - Cardiac Hx Cardiac Disorders: No - Pulmonary Hx Respiratory Disorders: No - Neurological Hx Neurological Disorder: No - HEENT Hx HEENT Disorder: No - Renal Hx Renal Disorder: No - Endocrine/Metabolic Hx Endocrine Disorders: No - Hematological/Oncological Hx Blood Disorders: No - Integumentary Hx Dermatological Disorder: No - Musculoskeletal/Rheumatological Hx Musculoskeletal Disorders: Yes - Gastrointestinal Hx Gastrointestinal Disorders: No - Genitourinary/Gynecological Hx Genitourinary Disorders: No - Psychiatric Hx Psychophysiologic Disorder: Yes Hx Schizophrenia: Yes Hx Substance Use: Yes - Surgical History Hx Inguinal Hernia Repair: Yes - Anesthesia Hx Anesthesia: Yes - Suicidal Assessment Feels Threatened In Home Enviroment: Yes Family/Social History - Physician Review Nursing Documentation Reviewed: Yes Family/Social History: Unknown Family HX Smoking Status: Heavy Smoker > 10 Cigarettes Daily Hx Alcohol Use: No Hx Substance Use: Yes Substance used: heroin, cocaine Hx Substance Use Treatment: No Allergies/Home Meds Allergies/Adverse Reactions: Allergies haloperidol [From Haldol] Adverse Reaction (Verified 04/11/18 20:41) PAIN cramping Home Medications: Home Meds Medication Instructions Recorded Confirmed Benztropine [Cogentin] 2 mg PO HS 04/09/18 04/11/18 Divalproex [Depakote ER(ONCE 250 mg PO HS 04/09/18 04/11/18 DAILY)] LORazepam [Ativan] 1 mg PO HS 04/09/18 04/11/18 fluPHENAZine [Fluphenazine HCl] 10 mg PO HS 04/09/18 04/11/18 Review of Systems - Physician Review All systems were reviewed & negative as marked: Yes - Review of Systems Systems not reviewed;Unavailable: Uncooperative Medical Decision Making ED Course and Treatment: 04/11/18 21:11 Impression 37 y/o M presenting to the ED for substance abuse Plan --Labs --EKG --UA --UDS --PES evaluation --[place] screen --CXR --Reassess & disposition Progress Notes 04/11/18 22:11 Labs reviewed with no outstanding values. Patient is medically cleared. PES cloth mercerizer back tender called. 04/12/18 05:42 [place] screener evaluated patient and accepts patient under involuntary admission, however, states there are no beds at this time. He states there may be beds later on in the morning. - RAD Interpretation Radiology Orders: 04/11/18 21:03 CHEST PORTABLE [RAD] Stat Disposition/Present on Arrival - Present on Arrival Any Indicators Present on Arrival: No History of DVT/PE: No History of Uncontrolled Diabetes: No Urinary Catheter: No History of Decub. Ulcer: No History Surgical Site Infection Following: None - Disposition Forms: [employer] (Tajik)
[2018-04-11 21:39] LABS: BASO # 0.03 K/mm3 (0.0-2.0); BASO % 0.3 % (0.0-3.0); EOS % 0.3 % (1.5-5.0); GRAN # 5.08 (1.4-6.5); GRAN % 57.9 % (50.0-68.0); HEMOGLOBIN 14.6 g/dL (14.0-18.0); LYMPH # 3.1 (1.2-3.4); LYMPH % 34.9 % (22.0-35.0); MEAN CELL VOLUME 90.2 fl (80.0-105.0); MEAN CORPUSCULAR HEMOGLOBIN 30.4 pg (25.0-35.0); MEAN CORPUSCULAR HGB CONC 33.7 g/dl (31.0-37.0); MEAN PLATELET VOLUME 8.8 fl (7.0-11.0); MONO # 0.6 (0.1-0.6); MONO % 6.6 % (1.0-6.0); RBC 4.8 10^6/uL (3.5-6.1); RED CELL DISTRIBUTION WIDTH 12.5 % (11.5-14.5); WHITE BLOOD COUNT 8.8 10^3/uL (4.5-11.0)
[2018-04-11 22:03] LABS: ACETAMINOPHEN < 10.0 ug/ml (10.0-20.0); SALICYLATE < 1 mg/dL (2.0-20.0)
[2018-04-11 22:06] LABS: ALB/GLOB RATIO 1.4 (1.1-1.8); ALBUMIN 4.6 g/dL (3.0-4.8); ALT/SGPT 28 U/L (7-56); AST/SGOT 29 U/L (17-59); BLOOD UREA NITROGEN 12 mg/dL (7-21); CALCIUM 9.4 mg/dL (8.4-10.5); GFR NON-AFRICAN AMERICAN > 60
[2018-04-11 22:18] LABS: FREE T4 1.07 ng/dL (0.78-2.19)
[2018-04-12 00:58] LABS: URINE BILIRUBIN NEGATIVE (NEGATIVE); URINE BLOOD SMALL (NEGATIVE); URINE GLUCOSE (UA) NEGATIVE (NEGATIVE); URINE LEUKOCYTE ESTERASE NEGATIVE Leu/uL (NEGATIVE); URINE PROTEIN NEGATIVE mg/dL (<30 mg/dL); URINE UROBILINOGEN 0.2 E.U./dL (<1 E.U./dL)
[2018-04-12 01:00] LABS: URINE APPEARANCE CLEAR (CLEAR); URINE COLOR LIGHT YELLOW (YELLOW)
[2018-04-12 01:14] LABS: URINE BACTERIA SMALL (NEG); URINE EPITHELIAL CELLS 0 - 2 /hpf (0-5); URINE WBC 0 - 2 /hpf (0-6)
[2018-04-12 01:25] LABS: BARBITURATES, UR NEGATIVE (NEGATIVE); BENZODIAZEPINES, UR NEGATIVE (NEGATIVE); OPIATES, UR NEGATIVE (NEGATIVE); PHENCYCLIDINE, UR NEGATIVE (NEGATIVE)
--- NOTE | 2018-04-12 07:49 | ED PDOC ---
Physical Exam Vital Signs Temp Pulse Resp BP Pulse Ox 04/12/18 06:15 98 F 77 18 122/77 100 04/12/18 04:00 98 F 75 18 120/76 18 L 04/11/18 20:40 97.9 F 75 16 133/73 98 Medical Decision Making ED Course and Treatment: 04/12/18 07:05 Case endorsed to me by Dr. Martinez. Patient was screened by [facility] [place] under [place] admission. Pending bed availability and transfer. - Lab Interpretations Lab Results: 04/11/18 21:30 04/11/18 21:30 Lab Results 04/12/18 00:38: Urine Opiates Screen Negative, Urine Methadone Screen Negative, Ur Barbiturates Screen Negative, Ur Phencyclidine Scrn Negative, Ur Amphetamines Screen Negative, U Benzodiazepines Scrn Negative, U Oth Cocaine Metabols Negative, U Cannabinoids Screen Negative 04/12/18 00:38: Urine Color Light yellow, Urine Appearance Clear, Urine pH 7.0, Ur Specific [place] 1.015, Urine Protein Negative, Urine Glucose (UA) Negative, Urine Ketones Negative, Urine Blood Small H, Urine Nitrate Negative, Urine Bili miranda Negative, Urine Urobilinogen 0.2, Ur Leukocyte Esterase Negative, Urine RBC 5 - 10, Urine WBC 0 - 2, Ur Epithelial Cells 0 - 2, Urine Bacteria Small 04/11/18 21:30: Salicylates < 1 L, Acetaminophen < 10.0 L 04/11/18 21:30: Free T4 1.07, TSH 3rd Generation 0.64, Alcohol, Quantitative < 10 04/11/18 21:30: Sodium 141, Potassium 4.2, Chloride 101, Carbon Dioxide 31, Anion Gap 13, BUN 12, Creatinine 0.9, Est GFR ( Amer) > 60, Est GFR (Non- Af Amer) > 60, Random Glucose 102, Calcium 9.4, Total Bilirubin 0.3, AST 29, ALT 28, Alkaline Phosphatase 79, Total Protein 7.8, Albumin 4.6, Globulin 3.2, Albumin/Globulin Ratio 1.4 04/11/18 21:30: WBC 8.8, RBC 4.80, Hgb 14.6, Hct 43.3, MCV 90.2, MCH 30.4, MCHC 33.7, RDW 12.5, Plt Count 299, MPV 8.8, Gran % 57.9, Lymph % (Auto) 34.9, [place] % (Auto) 6.6 H, Eos % (Auto) 0.3 L, Baso % (Auto) 0.3, Gran # 5.08, Lymph # (Auto) 3.1, [place] # (Auto) 0.6, Eos # (Auto) 0.0, Baso # (Auto) 0.03 - RAD Interpretation Radiology Orders: 04/11/18 21:03 CHEST PORTABLE [RAD] Stat - Medication Orders Current Medication Orders: Discontinued Medications Lorazepam (Ativan) 2 mg PO ONCE ONE; Protocol Stop: 04/12/18 04:31 Last Admin: 04/12/18 04:35 Dose: 2 mg - Transfer of Care Patient signed out to Dr:: Ayesha Other: awaiting available [facility] [place] - Scribe Statement The provider has reviewed the documentation as recorded by the Rohan Manning Provider Scribe Attestation: All medical record entries made by the Zacharyibpriscila were at my direction and personally dictated by me. I have reviewed the chart and agree that the record accurately reflects my personal performance of the history, physical exam, medical decision making, and the department course for this patient. I have also personally directed, reviewed, and agree with the discharge instructions and disposition. Disposition/Present on Arrival - Present on Arrival Any Indicators Present on Arrival: No History of DVT/PE: No History of Uncontrolled Diabetes: No Urinary Catheter: No History of Decub. Ulcer: No History Surgical Site Infection Following: None - Disposition Have Diagnosis and Disposition been Completed?: Yes Diagnosis: Schizophrenia Disposition Time: 19:00 Condition: STABLE Forms: [employer] (Luxembourgish)
--- NOTE | 2018-04-12 09:04 | RAD ---
HISTORY: psych screen COMPARISON: Chest x-ray performed 04/09/18 TECHNIQUE: Chest, one view. FINDINGS: LUNGS: No focal consolidation. Please note that chest x-ray has limited sensitivity for the detection of pulmonary masses. PLEURA: No significant pleural effusion identified. No definite pneumothorax . CARDIOVASCULAR: Heart size appears within normal limits. No significant atherosclerotic calcification present. OSSEOUS STRUCTURES: No acute osseous abnormality identified. VISUALIZED UPPER ABDOMEN: Unremarkable. OTHER FINDINGS: None. IMPRESSION: No focal consolidation.
[2018-04-12] MEDS ORDERED: Divalproex 500 mg ER (ONCE DAILY formulation) PO SCH ×2 (12:00)
--- NOTE | 2018-04-12 13:25 | CARD ---
APPROVED REPORT Date of service: 04/11/2018 EKG Measurement Heart [id number] <Conclusion> Normal sinus rhythm Normal ECG
--- NOTE | 2018-04-12 20:02 | ED PDOC ---
Physical Exam Vital Signs Reviewed: Yes Vital Signs Temp Pulse Resp BP Pulse Ox 04/12/18 18:07 98.2 F 78 18 114/67 99 04/12/18 14:08 98.3 F 76 16 114/73 99 04/12/18 11:19 71 16 106/58 L 97 04/12/18 06:15 98 F 77 18 122/77 100 04/12/18 04:00 98 F 75 18 120/76 18 L 04/11/18 20:40 97.9 F 75 16 133/73 98 Temperature: Afebrile Blood Pressure: Normal Pulse: Regular Respiratory Rate: Normal Appearance: Positive for: Well-Appearing, Non-Toxic, Comfortable Pain Distress: None Mental Status: Positive for: Alert and Oriented X 3 Medical Decision Making ED Course and Treatment: 04/12/18 19:00 Patient endorsed to me by Dr. Paris. Screened by [facility], currently waiting bed availability to transfer patient. - Lab Interpretations Lab Results: 04/11/18 21:30 04/11/18 21:30 Lab Results 04/12/18 12:25: Valproic Acid 55 04/12/18 00:38: Urine Opiates Screen Negative, Urine Methadone Screen Negative, Ur Barbiturates Screen Negative, Ur Phencyclidine Scrn Negative, Ur Amphetamines Screen Negative, U Benzodiazepines Scrn Negative, U Oth Cocaine Metabols Negative, U Cannabinoids Screen Negative 04/12/18 00:38: Urine Color Light yellow, Urine Appearance Clear, Urine pH 7.0, Ur Specific [place] 1.015, Urine Protein Negative, Urine Glucose (UA) Negative, Urine Ketones Negative, Urine Blood Small H, Urine Nitrate Negative, Urine Bilirubin Negative, Urine Urobilinogen 0.2, Ur Leukocyte Esterase Negative, Urine RBC 5 - 10, Urine WBC 0 - 2, Ur Epithelial Cells 0 - 2, Urine Bacteria Small 04/11/18 21:30: Salicylates < 1 L, Acetaminophen < 10.0 L 04/11/18 21:30: Free T4 1.07, TSH 3rd Generation 0.64, Alcohol, Quantitative < 10 04/11/18 21:30: Sodium 141, Potassium 4.2, Chloride 101, Carbon Dioxide 31, Anion Gap 13, BUN 12, Creatinine 0.9, Est GFR ( Amer) > 60, Est GFR (Non- Af Amer) > 60, Random Glucose 102, Calcium 9.4, Total Bilirubin 0.3, AST 29, ALT 28, Alkaline Phosphatase 79, Total Protein 7.8, Albumin 4.6, Globulin 3.2, Albumin/Globulin Ratio 1.4 04/11/18 21:30: WBC 8.8, RBC 4.80, Hgb 14.6, Hct 43.3, MCV 90.2, MCH 30.4, MCHC 33.7, RDW 12.5, Plt Count 299, MPV 8.8, Gran % 57.9, Lymph % (Auto) 34.9, [place] % (Auto) 6.6 H, Eos % (Auto) 0.3 L, Baso % (Auto) 0.3, Gran # 5.08, Lymph # (Auto) 3.1, [place] # (Auto) 0.6, Eos # (Auto) 0.0, Baso # (Auto) 0.03 - RAD Interpretation Radiology Orders: 04/11/18 21:03 CHEST PORTABLE [RAD] Stat - Medication Orders Current Medication Orders: Benztropine Mesylate (Cogentin) 0.5 mg PO BID ALEJANDRA Last Admin: 04/12/18 15:57 Dose: 0.5 mg Chlorpromazine (Thorazine) 50 mg PO TID ALEJANDRA; Protocol Last Admin: 04/12/18 19:09 Dose: 50 mg Clonazepam (Klonopin) 1 mg PO BID ALEJANDRA; Protocol Last Admin: 04/12/18 19:08 Dose: Not Given Non-Admin Reason: too close to readminister Divalproex Sodium (Depakote Er(Once Daily)) 1,000 mg PO DAILY ALEJANDRA; Protocol Last Admin: 04/12/18 15:57 Dose: 1,000 mg Discontinued Medications Divalproex Sodium (Depakote Er(Once Daily)) 1,000 mg PO DAILY ALEJANDRA; Protocol Lorazepam (Ativan) 2 mg PO ONCE ONE; Protocol Stop: 04/12/18 04:31 Last Admin: 04/12/18 04:35 Dose: 2 mg - Scribe Statement The provider has reviewed the documentation as recorded by the Rohan Barker Provider Scribe Attestation: All medical record entries made by the Zacharyibpriscila were at my direction and personally dictated by me. I have reviewed the chart and agree that the record accurately reflects my personal performance of the history, physical exam, medical decision making, and the department course for this patient. I have also personally directed, reviewed, and agree with the discharge instructions and disposition. Disposition/Present on Arrival - Present on Arrival Any Indicators Present on Arrival: No History of DVT/PE: No History of Uncontrolled Diabetes: No Urinary Catheter: No History of Decub. Ulcer: No History Surgical Site Infection Following: None - Disposition Have Diagnosis and Disposition been Completed?: Yes Diagnosis: Schizophrenia Disposition: Transfer [facility] Disposition Time: 06:00 Patient Problems: Current Active Problems Problem Status Onset Schizophrenia Chronic Condition: STABLE Forms: [employer] (Romanian)
[2018-04-13 06:19] VITALS: BP 104/63; PULSE 86; RESP 17; TEMP 98.1; O2SAT 98
== END 2018-04-13 06:19 | disposition short-term general hospital (02) ==
LOC: ED 20:36
DX: F20.9 Schizophrenia, unspecified (principal); F17.210 Nicotine dependence, cigarettes, uncomplicated
CPT/HCPCS: 71045; 80053; 80164; 81001; 84439; 84443; 85025; 90791; 93005; 99285; G0480; J1630; J2060; Q0161